=== PATIENT | male | born 1960 | race Caucasian/White ===

== ENCOUNTER → 2016-04-23 | Outpatient (CLI) | payer BC, OTHER ==
[~2016-04-23] VITALS: Ht 182.9 cm; Wt 93.4 kg
[~2016-04-23] MED LIST: HYDROCODON-ACE1 EAC7 PO; HYSINGLA ER40 MG PO; IBUPROFEN 200200 M1 PO; MS CONTIN15 MG PO; NABUMETONE 750750 M1 PO; NORCO 10-325 T1 EAC1 PO; NORCO 10-325 T1 EACH PO; NORCO 7.5-3251 EACH PO; SIMVASTATIN5 MG PO; ZOCOR 10 MG TAB10 MG PO
--- NOTE | ~2016-04-23 | HPC ---
[facility] [address] [place] [address] PAIN MANAGEMENT CONSULTATION Name: SAIDANETTE K Room #: REG [facility] Barbara#: [id number] Admission: 04/23/16 Attend Phys: Tj Rouse DO Discharge: Date of : 64 Report #: [id number] THIS REPORT FOR: //name// CC: Andres Rouse The patient is a very pleasant 56-year-old gentleman typically treated for lumbar radiculopathy, axial back pain requiring complex medication management. Last seen in the pain clinic 02/10/2016. The patient notes rotation from hydrocodone, hydromorphone to MS Contin has been efficacious, but he notes MS Contin 15 mg q. 8 hours helps with pain. Notes that if he forgets to take dose, obviously has a lag time in taking a "catch up" medication. We again reviewed need to take this on a scheduled basis. He is also noticing some "snapping" in his left hip with external rotation and/or significant abduction in the left hip. He has a clicking, popping of the iliotibial band. Notes he is having exacerbation of lumbar radicular symptoms similar to what had been treated last June with epidural injection under fluoroscopy. That injection afforded about 80% relief for several months per the patient. We reviewed the fact that opiate medications are being used to provide analgesia adequate to support activities of daily living, not attempting to achieve a specific pain score on the 0-10 Visual Analog Scale. The current opiate medications are providing sufficient analgesia to allow the patient to participate in activities of daily living. The patient is not exhibiting any aberrant behavior suggestive of drug diversion. The patient is not having any adverse reactions to medications. The patient is not suffering from daytime somnolence or mental acuity changes. The patient is managing opiate-induced constipation with appropriate ffvm-wxq-lfecqee agents and dietary considerations. The patient was counseled on concern for caution with operating a motor vehicle while using opiate medications. A physical exam was performed and the patient's functional status was evaluated. All patients with back pain were advised against the bed rest greater than 4 days and were advised to return to normal activities. Pain score assessment was noted and the treatment plan was reviewed with the patient. All current medications, both prescribed and OTC were reviewed and reconciled on the electronic medical record. Tobacco screening was accomplished and smoking cessation was advised when indicated. BMI was noted and diet/exercise modification was recommended for all patients following outside normal parameters. I reviewed with the patient today their responsibilities to safeguard prescription medications, reviewed their responsibility to utilize medications only as prescribed by the physician. They are to seek and receive pain medications only from 1 physician group ( [facility]). They are to use [address] [place] [address] PAIN MANAGEMENT CONSULTATION Name: DANETTE GIBBS Room #: REG [facility] Jimenez#: [id number] Admission: 04/23/16 Attend Phys: Tj Rouse DO Discharge: Date of : 64 Report #: [id number] pharmacy and keep the clinic informed if they change pharmacies. Their responsibilities include making followup visits in a timely fashion and to avoid abrupt discontinuation of medication usage. Their responsibilities further include bringing their medications (bottles from the pharmacy with residual pills) to the visit for possible confirmation of pill counts and the patient understands it is their responsibility to submit to random drug screens to ensure both that the medications prescribed are present, and that no other controlled substances are present. All prescriptions provided today were generated electronically. PHYSICAL EXAMINATION: Shows 56-year-old gentleman, BMI is 27.9 kilograms per meter squared. Vital signs showed modest hypertension 150/86, pulse 87, respirations 14. Rises from chair easily. Gait is tandem. Passive rotation of the left hip exacerbates a little bit of pain. I cannot reproduce the "pop or click." Modestly positive straight leg raise on the left. Diffuse tenderness across the low back. Again, we reviewed MRI findings somewhat dated from 09/19/2012 noting L5-S1 to have central stenosis with little bit of a left midline shift. ASSESSMENT: Symptomatic lumbar radiculopathy, axial back pain requiring complex medication management, new diagnosis of iliotibial band syndrome. RECOMMENDATION: 1. Renew MS Contin 15 mg every 8 hours. I have taken the liberty of writing for 2 months of current medications. 2. Acute exacerbation of lumbar radicular symptoms. Recommendation of epidural injection under fluoroscopy today. 3. Follow up in 2 months for reevaluation, earlier if needed. PROCEDURE: Lumbar epidural injection under fluoroscopy. PROCEDURE: Lumbar epidural steroid injection. PROCEDURE NOTE: After both written and informed consent to include risk of spinal cord damage, increased pain, weakness and dural puncture, the patient was taken to the fluoroscopy suite, placed in the prone position. After sterile prep and drape, a skin wheal with lidocaine was raised. A 22-gauge epidural Tuohy needle was inserted in the midline at L4-L5 with good loss to resistance. Negative aspiration for cerebrospinal fluid or blood was noted. Then 1 mL of Omnipaque under biplanar fluoroscopy showed good spread within the epidural space. This was followed with 80 mg of triamcinolone plus 1 mL of 1.5% preservative-free Xylocaine, 0.5 mL Xylocaine was then injected to flush the [facility] [address] [place] [address] PAIN MANAGEMENT CONSULTATION Name: DANETTE GIBBS Room #: REG [facility]#: [id number] Admission: 04/23/16 Attend Phys: Tj Rouse DO Discharge: Date of : 64 Report #: [id number] needle; it was removed. The patient was monitored for an appropriate period of time and discharged in good and stable condition. <ELECTRONICALLY SIGNED> By: Tj Rouse DO 04/27/16 1228 1253 0050 Tj Roues DO /nt
[2016-04-23 10:35] VITALS: BP 150/86
== END ==
LOC: PAIN 07:11
DX: M54.16 Radiculopathy, lumbar region (principal); Z87.891 Personal history of nicotine dependence

== ENCOUNTER → 2016-06-19 | Outpatient (CLI) | payer BC ==
[~2016-06-19] VITALS: Ht 182.9 cm; Wt 94.9 kg
--- NOTE | ~2016-06-19 | HPC ---
[facility] [place] [address] PAIN MANAGEMENT CONSULTATION Name: DANETTE GIBBS Room #: REG [facility] Rodrick.#: [id number] Admission: 06/19/16 Attend Phys: Tj Rouse DO Discharge: Date of : 64 Report #: [id number] THIS REPORT FOR: //name// CC: Andres Rouse The patient is a very pleasant 56-year-old gentleman, well known to the pain clinic, being treated for lumbar radiculopathy and axial back pain. At last visit, diagnosed with iliotibial band syndrome. The patient has been stable on baseline narcotic for some time, had found dwindling efficacy with hydrocodone, we have rotated MS Contin 15 mg q. 8 hours, that rotation was accomplished on 02/10/2016. Last visit was 04/23/2015. The patient had a lumbar epidural injection for exacerbation of radicular symptoms at that time. He returns to the pain clinic today noting that lumbar epidural injection accomplished on 04/23/2016 afforded significant incremental relief up to 90% better. Stable on baseline narcotics. Urine drug screen at 02/10/2016 visit was positive for prescribed medications. PHYSICAL EXAMINATION: Shows a 56-year-old gentleman, BMI is 28.4 kilograms per meter squared. Vital signs are stable. Former smoker, does not drink alcohol to excess. Alert and oriented to person, place, and time. Judged to be a reasonable historian. Rises from the chair easily. Gait is tandem. Some diffuse tenderness across the low back. Lumbar flexion is modestly limited. Notes primary pain in the low back, left greater than right leg. Dull, aching sensation, exacerbated with activity. 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 RECOMMENDATION: We have elected to continue baseline medication unchanged. We reviewed the fact that opiate medications are being used to provide analgesia adequate to support activities of daily living, not attempting to achieve a specific pain score on the 0-10 Visual Analog Scale. The current opiate medications are providing sufficient analgesia to allow the patient to participate in activities of daily living. The patient is not exhibiting any aberrant behavior suggestive of drug diversion. The patient is not having any adverse reactions to medications. The patient is not suffering from daytime somnolence or mental acuity changes. The patient is managing opiate-induced constipation with appropriate hetb-ijn-faaqcom agents and dietary considerations. The patient was counseled on concern for caution with operating a motor vehicle while using opiate medications. A physical exam was performed and the patient's functional status was evaluated. All patients with back pain were advised against the bed rest greater than 4 days and were advised to return to normal activities[place] [address] PAIN MANAGEMENT CONSULTATION Name: DANETTE GIBBS Room #: REG [facility] Jimenez#: [id number] Admission: 06/19/16 Attend Phys: Tj Rouse DO Discharge: Date of : 64 Report #: [id number] noted and the treatment plan was reviewed with the patient. All current medications, both prescribed and OTC were reviewed and reconciled on the electronic medical record. Tobacco screening was accomplished and smoking cessation was advised when indicated. BMI was noted and diet/exercise modification was recommended for all patients following outside normal parameters. I reviewed with the patient today their responsibilities to safeguard prescription medications, reviewed their responsibility to utilize medications only as prescribed by the physician. They are to seek and receive pain medications only from 1 physician group ( [facility]). They are to use 1 pharmacy and keep the clinic informed if they change pharmacies. Their responsibilities include making followup visits in a timely fashion and to avoid abrupt discontinuation of medication usage. Their responsibilities further include bringing their medications (bottles from the pharmacy with residual pills) to the visit for possible confirmation of pill counts and the patient understands it is their responsibility to submit to random drug screens to ensure both that the medications prescribed are present, and that no other controlled substances are present. All prescriptions provided today were generated electronically. ASSESSMENT: Symptomatic lumbar radiculopathy, axial back pain, requiring complex medication management, iliotibial band syndrome, last visit seems to be improving somewhat. RECOMMENDATION: Continue MS Contin 15 mg q. 8 hours, quantity sufficient for 2 months provided with 2 prescriptions. No breakthrough medicine. <ELECTRONICALLY SIGNED> By: Tj Rouse DO 06/22/16 1130 [id number] 1031 Tj Rouse DO /nt
[2016-06-19 08:18] VITALS: BP 136/88
== END ==
LOC: PAIN 06:58
DX: M54.16 Radiculopathy, lumbar region (principal); Z87.891 Personal history of nicotine dependence

== ENCOUNTER → 2016-08-14 | Outpatient (CLI) | payer BC, OTHER ==
[~2016-08-14] VITALS: Ht 182.9 cm; Wt 93.2 kg
--- NOTE | ~2016-08-14 | HPC ---
[facility] [address] [address] [place] [address] PAIN MANAGEMENT CONSULTATION Name: SAIDANETTE K Room #: REG [facility] Barbara#: [id number] Admission: 08/14/16 Attend Phys: Tj Rouse DO Discharge: Date of : 64 Report #: [id number] THIS REPORT FOR: //name// CC: Andres Rouse HISTORY OF PRESENT ILLNESS: The patient is a very pleasant 56-year-old gentleman well known to the pain clinic, typically treated for lumbar radiculopathy, axial back pain. Requires complex medication management. Prior concurrent diagnosis of iliotibial band syndrome. The patient had been on hydrocodone for some time, we have rotated MS Contin 15 mg q. 8 hours sometime ago and he has been remarkably stable on this medication. Last urine drug screen 02/10/2016 was positive for prescribed medication at that time. He returns to pain clinic today noting medications are generally providing sufficient analgesia to participate in activities of daily living. He has a fairly physically active job, does lot of walking throughout this time of year. Notes chronic pain in the low back, left leg with significantly improved with epidural injection 04/23/2016. He notes pain relief remains fairly much ongoing, starting to recur. He reported initially 90% relief overall. The patient has done well with occasional epidural injections, again last injection was in March. In 2015, he had injections in June and March. He had had 3 injections in 2014, three in 2013 and two in 2012. PHYSICAL EXAMINATION: Shows a 56-year-old gentleman, BMI is 27.9 kilograms per meter squared. Vital signs show modest hypertension at 151/98, pulse of 90, respirations 16. Alert and oriented to person, place and time, judged to be a reasonable historian. Rises from a chair using armrest. Gait is tandem. Lower extremity strength is preserved. Some diffuse axial back tenderness though leg strength is generally symmetric. He has a modestly positive straight leg raise on the left. We reviewed the fact that opiate medications are being used to provide analgesia adequate to support activities of daily living, not attempting to achieve a specific pain score on the 0-10 Visual Analog Scale. The current opiate medications are providing sufficient analgesia to allow the patient to participate in activities of daily living. The patient is not exhibiting any aberrant behavior suggestive of drug diversion. The patient is not having any adverse reactions to medications. The patient is not suffering from daytime somnolence or mental acuity changes. The patient is managing opiate-induced constipation with appropriate uwuk-sym-kdejhnj agents and dietary considerations. The patient was counseled on concern for caution with operating a motor vehicle while using opiate medications. [address] [address] PAIN MANAGEMENT CONSULTATION Name: DANETTE GIBBS Room #: REG [facility] Barbara#: [id number] Admission: 08/14/16 Attend Phys: Tj Rouse DO Discharge: Date of : 64 Report #: [id number] A physical exam was performed and the patient's functional status was evaluated. All patients with back pain were advised against the bed rest greater than 4 days and were advised to return to normal activities. Pain score assessment was noted and the treatment plan was reviewed with the patient. All current medications, both prescribed and OTC were reviewed and reconciled on the electronic medical record. Tobacco screening was accomplished and smoking cessation was advised when indicated. BMI was noted and diet/exercise modification was recommended for all patients following outside normal parameters. I reviewed with the patient today their responsibilities to safeguard prescription medications, reviewed their responsibility to utilize medications only as prescribed by the physician. They are to seek and receive pain medications only from 1 physician group ( [facility]). They are to use 1 pharmacy and keep the clinic informed if they change pharmacies. Their responsibilities include making followup visits in a timely fashion and to avoid abrupt discontinuation of medication usage. Their responsibilities further include bringing their medications (bottles from the pharmacy with residual pills) to the visit for possible confirmation of pill counts and the patient understands it is their responsibility to submit to random drug screens to ensure both that the medications prescribed are present, and that no other controlled substances are present. All prescriptions provided today were generated electronically. ASSESSMENT: Lumbar radiculopathy, axial back pain requiring complex medication management, stable on MS Contin 15 mg q. 8 hours. RECOMMENDATIONS: Taken the liberty of writing for 2 months of current medication. Follow up at that time, earlier if needed. Consider epidural injection if symptoms, i.e., left leg lumbar radicular symptoms (start to interfere with function). <ELECTRONICALLY SIGNED> By: Tj Rouse DO 08/17/16 1118 1159 1930 Tj Rouse DO /nt
[2016-08-14 10:38] VITALS: BP 151/98
== END ==
LOC: PAIN 05:45
DX: M54.16 Radiculopathy, lumbar region (principal); Z87.891 Personal history of nicotine dependence

== ENCOUNTER → 2016-10-09 | Outpatient (CLI) | payer BC, OTHER ==
[~2016-10-09] VITALS: Ht 182.9 cm; Wt 93.4 kg
[2016-10-09 11:36] VITALS: BP 140/96
== END | disposition home or self-care (01) ==
LOC: PAIN 06:55
DX: M54.16 Radiculopathy, lumbar region (principal); M54.9 Dorsalgia, unspecified; G89.29 Other chronic pain; F11.20 Opioid dependence, uncomplicated; Z98.890 Other specified postprocedural states; Z87.891 Personal history of nicotine dependence

== ENCOUNTER → 2016-12-07 | Outpatient (CLI) | payer BC, OTHER ==
[~2016-12-07] VITALS: Ht 182.9 cm; Wt 92.0 kg
--- NOTE | ~2016-12-07 | HPC ---
[facility] [place] [address] [place] [address] PAIN MANAGEMENT CONSULTATION Name: DANETTE GIBBS Room #: REG [facility].#: [id number] Admission: 12/07/16 Attend Phys: Tj Rouse DO Discharge: Date of : 64 Report #: [id number] THIS REPORT FOR: //name// CC: Andres Rouse DATE OF SERVICE: 12/07/2016 The patient is a very pleasant 56-year-old gentleman treated for chronic axial back pain, lumbar radiculopathy requiring high-risk complex medication management. Last seen in the pain clinic on 10/09/2016. Last urine drug screens in 2013 and 2015 were positive for prescribed medications. He returns to pain clinic today noting medications are helpful. I had done an epidural injection at last visit with significant incremental improvement of pain. He notes today his pain is about 1-2 on VAS. He is quite physically active. 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 He notes pain continues in the low back, left hip, and leg. Again, specifically significant improvement, about 70%, following last injection with overall ongoing improvement. PHYSICAL EXAMINATION: Shows 56-year-old gentleman, BMI is 27.5 kilograms per meter squared. Blood pressure is modestly elevated at 131/94, pulse 83, respirations are 14. Alert and oriented to person, place, and time, judged to be a reasonable historian. Rises from chair easily. Gait is tandem. Diffuse tenderness across the low back. No focal weakness is noted. We reviewed the fact that opiate medications are being used to provide analgesia adequate to support activities of daily living, not attempting to achieve a specific pain score on the 0-10 Visual Analog Scale. The current opiate medications are providing sufficient analgesia to allow the patient to participate in activities of daily living. The patient is not exhibiting any aberrant behavior suggestive of drug diversion. The patient is not having any adverse reactions to medications. The patient is not suffering from daytime somnolence or mental acuity changes. The patient is managing opiate-induced constipation with appropriate ekwd-xgh-ggucdcz agents and dietary considerations. The patient was counseled on concern for caution with operating a motor vehicle while using opiate medications. A physical exam was performed and the patient's functional status was evaluated. All patients with back pain were advised against the bed rest greater than 4 days and were advised to return to normal activities. Pain score assessment was noted and the treatment plan was reviewed with the patient. All current medications, both prescribed and OTC were reviewed and reconciled on the electronic medical record. Tobacco screening was accomplished and smoking [address] [address] PAIN MANAGEMENT CONSULTATION Name: SAIDANETTEEARL LIND Room #: REG [facility] Jimenez#: [id number] Admission: 12/07/16 Attend Phys: Tj Rouse DO Discharge: Date of : 64 Report #: [id number] cessation was advised when indicated. BMI was noted and diet/exercise modification was recommended for all patients following outside normal parameters. I reviewed with the patient today their responsibilities to safeguard prescription medications, reviewed their responsibility to utilize medications only as prescribed by the physician. They are to seek and receive pain medications only from 1 physician group ( [facility]). They are to use 1 pharmacy and keep the clinic informed if they change pharmacies. Their responsibilities include making followup visits in a timely fashion and to avoid abrupt discontinuation of medication usage. Their responsibilities further include bringing their medications (bottles from the pharmacy with residual pills) to the visit for possible confirmation of pill counts and the patient understands it is their responsibility to submit to random drug screens to ensure both that the medications prescribed are present, and that no other controlled substances are present. All prescriptions provided today were generated electronically. ASSESSMENT: Symptomatic lumbar radiculopathy, axial back pain requiring high-risk complex medication management. Stable on baseline medications. RECOMMENDATION: Renew MS Contin 15 mg q. 8 hours. I have taken the liberty of writing for 2 months current medications. Follow up at that time, consider buccal swab at that time, no aberrant behavior suggestive for drug diversion, simply complying with opiate consent to treat contract. It will be about 1 year since last drug screen at that time. Epidural injection only as indicated. <ELECTRONICALLY SIGNED> By: Tj Rouse DO 12/09/1611 58 Tj Rouse DO /nt
[2016-12-07 08:20] VITALS: BP 131/94
== END ==
LOC: PAIN 07:12
DX: Z76.0 Encounter for issue of repeat prescription (principal); M54.16 Radiculopathy, lumbar region; Z79.891 Long term (current) use of opiate analgesic; Z87.891 Personal history of nicotine dependence; Z72.89 Other problems related to lifestyle

== ENCOUNTER → 2017-04-19 | Outpatient (CLI) | payer BC, OTHER ==
[~2017-04-19] VITALS: Ht 182.9 cm; Wt 95.4 kg
[~2017-04-19] MED LIST changes: +CIALIS20 MG PO; +KETOCONAZOLE15 GM TOP; +LIPITOR10 MG PO
--- NOTE | ~2017-04-19 | HPC ---
[facility] [address] [place] [address] PAIN MANAGEMENT CONSULTATION Name: DANETTE GIBBS Room #: REG [facility] MRob.#: [id number] Admission: 04/19/17 Attend Phys: Tj Rouse DO Discharge: Date of : 64 Report #: [id number] THIS REPORT FOR: //name// CC: Andres Rouse The patient is a very pleasant 57-year-old gentleman, long treated for lumbar radiculopathy, axial back pain requiring high risk complex medication management. Last seen in pain clinic 02/04/2017. We continued the patient on MS Contin 15 mg q.8 hours. He prior had a lumbar epidural injection back in September at L4-L5 with good incremental improvement of baseline pain. He returns to pain clinic today. He had weaned down and off opiate analgesics. He has been off morphine now for about 2 weeks. He feels unfortunately that his functional status has declined with this. He does note acute exacerbation of left L4 radicular pain with pain in the low back, buttock, lateral leg to the foot. PHYSICAL EXAMINATION: Shows pleasant 57-year-old gentleman, BMI is approximately 26 kilograms per meter squared. Vital signs stable as noted in the EMR. Rises using armrest, modestly antalgic gait, diffuse tenderness across the low back, positive straight leg raise on the left, slightly decreased left patellar reflex. We reviewed the fact that opiate medications are being used to provide analgesia adequate to support activities of daily living, not attempting to achieve a specific pain score on the 0-10 Visual Analog Scale. The current opiate medications are providing sufficient analgesia to allow the patient to participate in activities of daily living. The patient is not exhibiting any aberrant behavior suggestive of drug diversion. The patient is not having any adverse reactions to medications. The patient is not suffering from daytime somnolence or mental acuity changes. The patient is managing opiate-induced constipation with appropriate uodx-vdj-fmcqrmn agents and dietary considerations. The patient was counseled on concern for caution with operating a motor vehicle while using opiate medications. A physical exam was performed and the patient's functional status was evaluated. All patients with back pain were advised against the bed rest greater than 4 days and were advised to return to normal activities. Pain score assessment was noted and the treatment plan was reviewed with the patient. All current medications, both prescribed and OTC were reviewed and reconciled on the electronic medical record. Tobacco screening was accomplished and smoking cessation was advised when indicated. BMI was noted and diet/exercise modification was recommended for all patients following outside normal parameters. I reviewed with the patient today their responsibilities to safeguard prescription medications, reviewed their responsibility to utilize medications only as prescribed by the physician. They are to seek and receive pain [address] [address] PAIN MANAGEMENT CONSULTATION Name: SAIDANETTEEARL LIND Room #: REG [facility] Jimenez#: [id number] Admission: 04/19/17 Attend Phys: Tj Rouse DO Discharge: Date of : 64 Report #: [id number] medications only from 1 physician group ( [facility]). They are to use 1 pharmacy and keep the clinic informed if they change pharmacies. Their responsibilities include making followup visits in a timely fashion and to avoid abrupt discontinuation of medication usage. Their responsibilities further include bringing their medications (bottles from the pharmacy with residual pills) to the visit for possible confirmation of pill counts and the patient understands it is their responsibility to submit to random drug screens to ensure both that the medications prescribed are present, and that no other controlled substances are present. All prescriptions provided today were generated electronically. ASSESSMENT: Lumbar radiculopathy, acute exacerbation, chronic axial back pain requiring high risk complex medication management. Last buccal drug swab was 02/14/2017. RECOMMENDATIONS: 1. After discussion with the patient, they have elected to renew a prescription for MS Contin 15 mg q.8 hours, dispense 90 tablets. We will start patient back with simply 1 tablet at bedtime, gradually titrating up to t.i.d. as needed for pain. He does not have any end of dose failure and did not have any obvious opiate withdrawal symptoms as he weaned off before. I would like to use a lowest effective dose, but keep him functional. He has a very physically intensive job. 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 He requires a fair bit of walking and traveling. 2. Acute exacerbation of lumbar radiculopathy. Recommendation for epidural injection under fluoroscopy. PROCEDURE: Lumbar epidural steroid injection. PROCEDURE NOTE: After both written and informed consent to include risk of spinal cord damage, increased pain, weakness and dural puncture, the patient was taken to the fluoroscopy suite, placed in the prone position. After sterile prep and drape, a skin wheal with lidocaine was raised. A 22-gauge epidural Tuohy needle was inserted in the midline at L4-5 with good loss to resistance. Negative aspiration for cerebrospinal fluid or blood was noted. Then 1 mL of Omnipaque under biplanar fluoroscopy showed good spread within the epidural space. This was followed with 80 mg of triamcinolone plus 1 mL of 1.5% preservative-free Xylocaine, 0.5 mL Xylocaine was then injected to flush the needle; it was removed. The patient was monitored for an appropriate period of time and discharged in good and stable condition. <ELECTRONICALLY SIGNED> By: Tj Rouse DO 04/21/17 0807 [id number] Tj Rouse DO /nt
[2017-04-19 13:49] VITALS: BP 132/82
== END | disposition home or self-care (01) ==
LOC: PAIN 07:11
DX: M54.16 Radiculopathy, lumbar region (principal); G89.29 Other chronic pain; Z79.891 Long term (current) use of opiate analgesic; Z87.891 Personal history of nicotine dependence

== ENCOUNTER → 2017-06-21 | Outpatient (CLI) | payer BC, OTHER ==
[~2017-06-21] VITALS: Ht 182.9 cm; Wt 94.8 kg
--- NOTE | ~2017-06-21 | HPC ---
[facility] [address] [place] [address] PAIN MANAGEMENT CONSULTATION Name: DANETTE GIBBS Room #: REG [facility] Rodrick.#: [id number] Admission: 06/21/17 Attend Phys: Tj Rouse DO Discharge: Date of : 64 Report #: [id number] THIS REPORT FOR: //name// CC: Andres Rouse DATE OF SERVICE: 06/21/2017 The patient is a very pleasant 57-year-old gentleman being treated for symptomatic lumbar radiculopathy, axial back pain requiring complex medication management. Last seen in the pain clinic on 04/19/2017. Continued on baseline medication. He had weaned off morphine for a short period of time, had significant impact in his functional status, gradually weaned back to MS Contin 15 mg q.8 hours. He is doing well on this current medication. Prior random drug screen on 02/04/2017 was negative as expected. He had weaned off his MS Contin. Unfortunately, I learned from the patient today that the insurance company charged him nearly [phone] dollars for this exam. We refer this for multiple of our patients. While we were endeavoring to appropriately comply with CDC recommendations for chronic opiate use, we will endeavor to have the hospital look for another vendor to provide our random drug screens, this does pose a serious cost to most of our patients. Nonetheless, he returns to the pain clinic. He is doing well on current medication. 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 Fairly active job requiring a great deal of walking. He notes with medications, his current pain is a 2 on a VAS, the pain is primarily low back, left greater than right leg, chronic aching sensation with some numbness. He has had good relief with epidural injections in the past. MRI back from 5 years ago in 2012, had noted facet degenerative changes in the lumbar spine, worse at L5-S1, eccentric disk bulging left of midline. He does have bilateral neural foraminal stenosis. We suspect this has simply gotten worse over the past 5 years. PHYSICAL EXAMINATION: Again notes a pleasant 57-year-old gentleman, BMI is 28.3 kilograms per meter squared. Blood pressure 133/86, pulse 109, respirations 16, oxygen saturation 97%. He rises from chair using armrest. Lower extremity strength is generally preserved, slight positive straight leg raise on the left, diffuse tenderness across the low back. No discrete trigger points noted. Gait is tandem. Reviewed opiate consent to treat contract signed on 02/04/2017. Opiate risk assessment is low risk. Functional impact score is low . ASSESSMENT: Symptomatic lumbar radiculopathy, axial back pain, stable on [address] [address] PAIN MANAGEMENT CONSULTATION Name: DANETTE GIBBS Room #: REG [facility] Jimenez#: [id number] Admission: 06/21/17 Attend Phys: Tj Rouse DO Discharge: Date of : 64 Report #: [id number] complex medication management. RECOMMENDATION: Continue MS Contin 15 mg q.8 hours, I have taken the liberty of writing for 2 months of current medication. Follow up in 2 months for reevaluation. 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 We spent a little time talking about [facility]. The patient has had epidural injections in March of this year. In 2016, he had injections in March and September. Really does not warrant interventional therapy at this time. Discharged in good and stable condition. <ELECTRONICALLY SIGNED> By: Tj Rouse DO 06/25/17 0944 1546 1758 Tj Rouse DO /nt
[2017-06-21 14:54] VITALS: BP 133/86
== END ==
LOC: PAIN 07:14
DX: M54.16 Radiculopathy, lumbar region (principal); Z79.899 Other long term (current) drug therapy

== ENCOUNTER → 2017-11-09 | Outpatient (CLI) | payer BC, OTHER ==
[~2017-11-09] VITALS: Ht 182.9 cm; Wt 95.3 kg
[~2017-11-09] MED LIST changes: -KETOCONAZOLE15 GM TOP; -LIPITOR10 MG PO
--- NOTE | ~2017-11-09 | HPC ---
[facility] [address] [place] [address] PAIN MANAGEMENT CONSULTATION Name: DANETTE GIBBS Room #: REG CL M.R.#: [id number] Admission: 11/09/17 Attend Phys: Jaime Rouse DO Discharge: Date of : 64 Report #: [id number] THIS REPORT FOR: //name// CC: Jaime Nicole DATE OF SERVICE: 11/09/2017 REFERRING PHYSICIAN: Benjie Nguyen D.O. CHIEF COMPLAINT: Low back pain and left lower extremity pain with paresthesias. HISTORY OF PRESENT ILLNESS: As you know, the patient is a very pleasant 57-year-old male who is followed by my partner, Dr. Tj Rouse for lumbar radicular symptoms radiating down the left leg. He indicates pain medication in the form of MS Contin 15 mg 3 times a day with the use of a periodic epidural injection provides good and prolonged benefit. He states he is able to work go about activities of daily living and even golf as entertainment. He returns requesting refill of medications at this time. He does wish to schedule an appointment for possible epidural injection next week. Once he is scheduled, is able to accommodate injection and go home and relax. He indicates pain is aching and numbness in sensation, exacerbated with activities, sitting in the car and sitting for long periods of time, improves with medications, walking, relaxation, repositioning and epidural injections. ALLERGIES: No known drug allergies. CURRENT MEDICATIONS: MS Contin 15 mg 3 times a day, Cialis 20 mg p.r.n. and ibuprofen 200 mg 3 times a day. SOCIAL HISTORY: The patient smokes. He denies IV or illicit drug use. Denies any chronic alcohol use. He is working, not receiving workmen's compensation. He is unaccompanied today. IMAGING DATA: No new imaging available. K-TRACS and MoTracks were reviewed. There is no concerning entries in these programs. He appears to be receiving his medications appropriately. PHYSICAL EXAMINATION: VITAL SIGNS: Blood pressure 139/92, pulse 89 and respiratory rate 16 and unlabored. The patient 99% on room air, height 6 feet tall, weight 210 pounds and BMI calculated 28.5. GENERAL: Well-developed, well-nourished and well-hydrated 57-year-old male appearing stated age, placing current pain score at 2/10. HEENT: Normocephalic and atraumatic. Pupils equal, round and reactive to [address] [address] PAIN MANAGEMENT CONSULTATION Name: DANETTE GIBBS Room #: REG CLI [facility]#: [id number] Admission: 11/09/17 Attend Phys: Jaime Rouse DO Discharge: Date of : 64 Report #: [id number] light. Extraocular muscles are intact. Sclerae nonicteric without injection. NEUROLOGICAL: Cranial nerves 2 through 12 grossly intact. Speech fluent. EXTREMITIES: Show no clubbing, no cyanosis and no edema. MUSCULOSKELETAL: Lower extremity strength appears equal and symmetrical 5/5, intact to light touch from L1 through S2 dermatomes. Deep tendon reflexes are symmetrical at patella and Achilles. Ankle clonus negative. Babinski is negative. Seated straight leg raising negative. Supine straight leg raising positive on the left. ASSESSMENT: 1. Symptomatic lumbar radiculopathy. 2. Displacement of lumbar intervertebral disk with radiculopathy. 3. Lumbosacral spondylosis with radiculopathy. 4. Neural foraminal stenosis of the lumbar spine. 5. Facet arthropathy of the lumbar spine. 6. Chronic intractable pain. PLAN: 1. The patient has returned today in followup visit requesting refill on medications. He feels medications are working beneficially for pain control. As part of our opioid monitoring secondary to her opioid contract, I have requested the patient undergo a urine drug screen today. He states we will find no medications that are not reported over a long period. He states he is taking his morphine 3 times a day and this should be found in his drug screen. He will submit to the drug screen today. Results should be available to us next week. 2. We reviewed the fact that opiate medications are being used to provide analgesia adequate to support activities of daily living, not attempting to achieve a specific pain score on the 0-10 Visual Analog Scale. The current opiate medications are providing sufficient analgesia to allow the patient to participate in activities of daily living. The patient is not exhibiting any aberrant behavior suggestive of drug diversion. The patient is not having any adverse reactions to medications. The patient is not suffering from daytime somnolence or mental acuity changes. The patient is managing opiate-induced constipation with appropriate gtrl-bkf-aoohmck agents and dietary considerations. The patient was counseled on concern for caution with operating a motor vehicle while using opiate medications. A physical exam was performed and the patient's functional status was evaluated. All patients with back pain were advised against the bed rest greater than 4 days and were advised to return to normal activities. Pain score assessment was noted and the treatment plan was reviewed with the patient. All current medications, both prescribed and OTC were reviewed and reconciled on the electronic medical record. Tobacco screening was accomplished and smoking cessation was advised when indicated. BMI was noted and diet/exercise modification was recommended for all patients following outside normal parameters. [address] [address] PAIN MANAGEMENT CONSULTATION Name: DANETTE GIBBS [facility] [id number] Admission: 11/09/17 Attend Phys: Jaime Rouse DO Discharge: Date of : 64 Report #: [id number] I reviewed with the patient today their responsibilities to safeguard prescription medications, reviewed their responsibility to utilize medications only as prescribed by the physician. They are to seek and receive pain medications only from 1 physician group ( [facility]). They are to use 1 pharmacy and keep the clinic informed if they change pharmacies. Their responsibilities include making followup visits in a timely fashion and to avoid abrupt discontinuation of medication usage. Their responsibilities further include bringing their medications (bottles from the pharmacy with residual pills) to the visit for possible confirmation of pill counts and the patient understands it is their responsibility to submit to random drug screens to ensure both that the medications prescribed are present, and that no other controlled substances are present. All prescriptions provided today were generated electronically. 3. The patient was provided a prescription of MS Contin 15 mg dose 1 tab p.o. t.i.d. I have given the patient #90 tablets, releases of today, 4 weeks from today, 8 weeks from today, 3 months' worth of medication. Total morphine equivalents in this patient's case, 45 morphine equivalents well below the 90 morphine equivalents indicated by CDC as the maximum dose available for chronic pain. 4. The patient will return to our clinic next week for epidural injection under fluoroscopic guidance. 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 We have scheduled the patient for an appointment next week to undergo lumbar epidural injection under fluoroscopic guidance. 5. We will see the patient back in followup visit for the epidural injection next week. We will see him back in 3 months for medication management. <ELECTRONICALLY SIGNED> By: Jaime Rouse DO 11/10/17 0838 1529 0150 Jaime Rouse DO /nt
[2017-11-09 14:21] VITALS: BP 139/92
== END ==
LOC: PAIN 07:09
DX: M47.27 Other spondylosis with radiculopathy, lumbosacral region (principal); M48.062 Spinal stenosis, lumbar region with neurogenic claudication; M51.16 Intervertebral disc disorders with radiculopathy, lumbar region; G89.4 Chronic pain syndrome

== ENCOUNTER → 2017-11-16 | Outpatient (CLI) | payer BC, OTHER ==
[~2017-11-16] VITALS: Ht 182.9 cm; Wt 94.3 kg
--- NOTE | ~2017-11-16 | HPC ---
[facility] [address] [place] [address] PAIN MANAGEMENT CONSULTATION Name: DANETTE GIBBS Room #: REG CL M.R.#: [id number] Admission: 11/16/17 Attend Phys: Jaime Rouse DO Discharge: Date of : 64 Report #: [id number] THIS REPORT FOR: //name// CC: DANIEL Nicole DATE OF SERVICE: 11/16/2017 CHIEF COMPLAINT: Low back pain, left lower extremity pain with paresthesias. HISTORY OF PRESENT ILLNESS: As you know, the patient is a 57-year-old male followed by my partner, Dr. Tj Rouse for lumbar radicular symptoms radiating down his left leg. He returns today in followup visit requesting to undergo a lumbar epidural injection under fluoroscopic guidance. The patient reports good efficacy with combination of epidural injections and medication management. We continued the patient on his medication management at our last visit and he returns today with pain level of 2/10 requesting this epidural injection in hopes of improving pain further. As indicated above, the patient does very well with epidural injections. He denies injury or trauma or any changes in medical history since our visit last week. ALLERGIES: No known drug allergies. CURRENT MEDICATIONS: MS Contin 15 mg 3 times a day, Cialis 20 mg p.r.n., ibuprofen 200 mg 3 times a day. SOCIAL HISTORY: The patient continues to smoke. He denies IV or illicit drug use. Denies any chronic alcohol use. He is working, not receiving workmen's compensation, unaccompanied today. IMAGING: No new imaging available. PHYSICAL EXAMINATION: VITAL SIGNS: Blood pressure 126/80, pulse is 104, respiratory rate 16 and unlabored. The patient is 98% on room air. Height 6 feet tall, weight 208 pounds, BMI calculated at 28.2. GENERAL: Well-developed, well-nourished, well-hydrated 57-year-old male. He appears his stated age, placing current pain score no greater than 2/10. HEENT: Normocephalic, atraumatic. Pupils equal, round, reactive to light. EXTREMITIES: Show no clubbing, no cyanosis, no edema. MUSCULOSKELETAL: Lower extremity strength is symmetrical 5/5, intact to light touch from L1 through S2 dermatomes. Deep tendon reflexes symmetrical at patella and Achilles. Ankle clonus negative. Babinski is negative. Seated straight leg raising negative. Supine straight leg raising positive on the left. Gait mildly antalgic favoring left lower extremity over right. [facility] [address] [place] [address] PAIN MANAGEMENT CONSULTATION Name: DANETTE GIBBS Room #: REG [facility]#: [id number] Admission: 11/16/17 Attend Phys: Jaime Rouse DO Discharge: Date of : 64 Report #: [id number] ASSESSMENT: 1. Symptomatic lumbar radiculopathy. 2. Displacement of lumbar intervertebral disk with radiculopathy. 3. Lumbosacral spondylosis with radiculopathy. 4. Neural foraminal stenosis of lumbar spine. 5. Facet arthropathy of the lumbar spine. 6. Chronic intractable pain. PLAN: 1. The patient returns today in followup visit requesting to undergo epidural injection under fluoroscopic guidance. The patient has been advised of the risks and the benefits of this procedure. These risks include, but are not necessarily limited to bleeding, bruising, infection, worsening pain, no relief of pain, also risk of temporary or permanent muscle weakness, temporary or permanent nerve damage, possible paralysis and . The patient states understood and wished to proceed. 2. No medication changes made at today's visit. The patient will continue current medical therapy as previously prescribed. 3. We have reviewed the patient's recent urine drug screen obtained 11/09/2017. It shows appropriate morphine positive, negative for all other substances except for nicotine. This appears to be an appropriate drug screen. We have discussed this with the patient today. 4. We will see the patient back in followup visit in 2 months for medication management, otherwise earlier for possible repeat epidural injection. PROCEDURE NOTE DESCRIPTION OF PROCEDURE: L5-S1 left paramedian epidural steroid injection under fluoroscopic guidance. After obtaining written consent, the patient was taken back to fluoroscopy suite, placed in prone position with pillow under abdomen to decrease lumbar lordosis. Skin overlying the lumbosacral area was prepped and draped in aseptic fashion. The L5-S1 vertebral interspace was identified by AP fluoroscopy. Skin and subcutaneous tissue overlying target site of injection was anesthetized with 3 mL of 1% lidocaine. A 20-gauge 3-1/2 inch Tuohy needle advanced under fluoroscopic guidance towards the epidural space using left paramedian approach. Epidural space identified using loss of resistance to air technique. After negative aspiration for heme or cerebrospinal fluid, 1 mL of Omnipaque injected. A lumbar epidurogram confirmed using both AP and lateral fluoroscopy. After negative aspiration for heme or cerebrospinal fluid, 5 mL of solution containing 2 mL 40 mg per mL, 80 mg total triamcinolone, 3 mL lidocaine 1% injected slowly. Needle retracted jail, flushed with 1 mL of 1% lidocaine and removed. Sterile bandage placed [address] [address] PAIN MANAGEMENT CONSULTATION Name: DANETTE GIBBS Room #: REG CLI Rodrick.#: [id number] Admission: 11/16/17 Attend Phys: Jaime Rouse DO Discharge: Date of : 64 Report #: [id number] over injection site. No new motor deficits present in lower extremity following procedure. The patient tolerated the procedure well, carefully escorted to recovery room in stable condition. No apparent complication. After meeting discharge criteria, the patient discharged home. <ELECTRONICALLY SIGNED> By: Jaime Rouse DO 11/18/17 0817 1633 0310 Jaime Rouse DO /nt
[2017-11-16 13:33] VITALS: BP 126/80
== END | disposition home or self-care (01) ==
LOC: PAIN 07:01
DX: M51.16 Intervertebral disc disorders with radiculopathy, lumbar region (principal); M47.27 Other spondylosis with radiculopathy, lumbosacral region; M48.061 Spinal stenosis, lumbar region without neurogenic claudication; M46.96 Unspecified inflammatory spondylopathy, lumbar region; G89.29 Other chronic pain; F17.210 Nicotine dependence, cigarettes, uncomplicated; Z79.899 Other long term (current) drug therapy; Z98.890 Other specified postprocedural states

== ENCOUNTER → 2018-02-02 | Outpatient (CLI) | payer BC, OTHER ==
[~2018-02-02] VITALS: Ht 180.3 cm; Wt 94.3 kg
[~2018-02-02] MED LIST changes: +KETOCONAZOLE15 GM TOP; +LIPITOR10 MG PO
--- NOTE | ~2018-02-02 | HPC ---
[facility] [place] [address] PAIN MANAGEMENT CONSULTATION Name: DANETTE GIBBS Room #: REG [facility] MRob.#: [id number] Admission: 02/02/18 Attend Phys: Kallie Yen Discharge: Date of : 64 Report #: [id number] THIS REPORT FOR: //name// CC: Kallie Yen Andres Nicole DATE OF SERVICE: 02/02/2018 CHIEF COMPLAINT: Low back pain, left lower extremity pain and paresthesias. HISTORY OF PRESENT ILLNESS: This is a 58-year-old male who is followed by Dr. Tj Rouse, recently by Dr. Jaime Rouse for his lumbar radicular symptoms from his low back, down his left hip and to his left leg. The patient complains of achy and numbness, especially when he is sitting or lying down. He said it is worse at night. He tells me he is very active during the day and walking, it helps it along with his medications. He rates his pain at 2/10 today. He tells me he does not have problems with constipation or daytime somnolence. He is here requesting a refill for his medicines today. He did have an injection in the past, but says they are very helpful in relieving his pain when it gets too bad. His last injection was in October and he tells me at that time he had 80% relief. ALLERGIES: No known drug allergies. CURRENT LIST OF MEDICATIONS: Atorvastatin 10 mg at bedtime, MS Contin 15 mg 3 times a day, Cialis 20 mg as needed, ibuprofen 200 mg as needed and fiber supplement daily. PQRS: 1. History of osteoarthritis in his lower back and lower extremity. Denies rheumatoid arthritis. 2. Height is 5 feet 11 inches, weight 208. BMI is 29. 3. Vital signs: Blood pressure 146/92, pulse is 95, respirations 18, oxygen sat is 98%. 4. Pain score is 2. 5. Fall risk: Denies dizziness. Does not need help walking or standing and has not fallen in the last 3 months. 6. Denies blood thinners. Denies hypertension. 7. Opioid therapy greater than 6 weeks, therefore opioid signed contract is on the chart. 8. His risk assessment tool is low and his functional assessment is . 9. The patient denies recreational drug use. He is a former smoker and does drink occasional alcohol. We have checked the [place] drug monitoring system. The patient is filling appropriate with his medications from Dr. Rouse and no other doctors [address] [address] PAIN MANAGEMENT CONSULTATION Name: DANETTE GIBBS [facility]: [facility] [id number] Admission: 02/02/18 Attend Phys: Kallie Yen Discharge: Date of : 64 Report #: [id number] and the patient tells me he safeguards his medications. PHYSICAL EXAMINATION: GENERAL: This is a well-developed, well-nourished, well-hydrated 58-year-old gentleman who appears his stated age, placing his pain at 2/10. HEENT: Normocephalic, atraumatic. Pupils equal, round and reactive to light. EXTREMITIES: No clubbing, no cyanosis, no edema. MUSCULOSKELETAL: Lower extremity strength to be judged to be 5/5. Supine straight raising is positive on the left. Able to raise from sitting to standing without difficulty. IMPRESSION: 1. Symptomatic lumbar radiculopathy. 2. Displacement of lumbar intervertebral disk with radiculopathy. 3. Lumbosacral spondylosis with radiculopathy. 4. Facet arthroscopy of the lumbar spine. 5. Chronic intractable pain. We reviewed the fact that opiate medications are being used to provide analgesia adequate to support activities of daily living, not attempting to achieve a specific pain score on the 0-10 Visual Analog Scale. The current opiate medications are providing sufficient analgesia to allow the patient to participate in activities of daily living. The patient is not exhibiting any aberrant behavior suggestive of drug diversion. The patient is not having any adverse reactions to medications. The patient is not suffering from daytime somnolence or mental acuity changes. The patient is managing opiate-induced constipation with appropriate dwov-bkp-nbsclto agents and dietary considerations. The patient was counseled on concern for caution with operating a motor vehicle while using opiate medications. A physical exam was performed and the patient's functional status was evaluated. All patients with back pain were advised against the bed rest greater than 4 days and were advised to return to normal activities. Pain score assessment was noted and the treatment plan was reviewed with the patient. All current medications, both prescribed and OTC were reviewed and reconciled on the electronic medical record. Tobacco screening was accomplished and smoking cessation was advised when indicated. BMI was noted and diet/exercise modification was recommended for all patients following outside normal parameters. I reviewed with the patient today their responsibilities to safeguard prescription medications, reviewed their responsibility to utilize medications only as prescribed by the physician. They are to seek and receive pain medications only from 1 physician group ([facility]). They are to use 1 pharmacy and keep the clinic informed if they change pharmacies. Their responsibilities include making followup visits in a timely fashion and to avoid [address] [address] PAIN MANAGEMENT CONSULTATION Name: DANETTE GIBBS Room #: REG [facility] Jimenez#: [id number] Admission: 02/02/18 Attend Phys: Kallie Yen Discharge: Date of : 64 Report #: [id number] abrupt discontinuation of medication usage. Their responsibilities further include bringing their medications (bottles from the pharmacy with residual pills) to the visit for possible confirmation of pill counts and the patient understands it is their responsibility to submit to random drug screens to ensure both that the medications prescribed are present, and that no other controlled substances are present. All prescriptions provided today were generated electronically. PLAN: 1. The patient returned today for followup visit for his medication management. He tells me that he is functioning quite well on his MS Contin 15 mg 3 times a day. We will refill that medicine 15 mg #90 for today and again in 8 weeks. 2. The patient has urine drug screen that is appropriate on the chart. 3. The patient tells me that he will be going to [place] on a cruise in a few months. I have instructed the patient to safeguard his medicines when he is on vacation and keep them with him at all times. 4. The patient will be seen in 3 months in followup visit by myself. His total MME is 45 mme, which is below the 90 and 50 morphine equivalents that the CDC recommends, therefore, we are able to give him 3 months of medicines: The patient is seen in followup collaboration with Dr. Jaime Rouse. <ELECTRONICALLY SIGNED> By: Kallie Yen 02/03/18 0701 [id number] Kallie moreno
[2018-02-02 09:05] VITALS: BP 146/92
== END ==
LOC: PAIN 07:01
DX: M47.27 Other spondylosis with radiculopathy, lumbosacral region (principal); G89.4 Chronic pain syndrome; M12.88 Other specific arthropathies, not elsewhere classified, other specified site

== ENCOUNTER → 2018-04-27 | Outpatient (CLI) | payer BC, OTHER ==
[~2018-04-27] VITALS: Ht 180.3 cm; Wt 97.3 kg
[2018-04-27 09:26] VITALS: BP 153/102
--- NOTE | 2018-04-27 09:30 | NUR ---
Pain Clinic Assessment: 1. History of Osteoarthritis: Not Applicable History of Rheumatoid Arthritis: Not Applicable 2. Height: 5 ft. 11 in. 180.3 cm. Weight: 214.6 lb. oz. 97.342 kg. Patient's BMI: 29.9 3. Vital Signs: BP: 153/102 Pulse: 89 Resp: 16 Temp: 02 Sat: 98 ECG Mon: 4. Pain Intensity: 1-2 5. Fall Risk: Dizziness: N Needs help standing or walking: N Fallen in the last 3 months: N Fall risk comments: 6. Patient on Blood Thinner: None 7. History of Hypertension: N 8. Opioid Therapy greater than 6 weeks: Y Opiate Contract Signed: 02/04/17 9. Risk Assessment Tool Provided: 3-LOW RISK 10. Functional Assessment Tool: 11. Recreational Drug Use: Never Drug Type: Tobacco Use: Former Smoker Tobacco Type: Amount or Packs/day: How Many Years: Alcohol Use: Yes Frequency: Weekly Quant: 4
--- NOTE | 2018-04-28 10:00 | HPC ---
[facility] [address] [place] [address] PAIN MANAGEMENT CONSULTATION Name: DANETTE GIBBS Room #: REG CL Rodrick.#: [id number] Admission: 04/27/18 Attend Phys: Kallie Yen Discharge: Date of : 64 Report #: [id number] THIS REPORT FOR: //name// CC: Kallie Yen Andres Nicole DATE OF SERVICE: 04/27/2018 CHIEF COMPLAINT: Low back pain, left lower extremity pain, and paraesthesias. HISTORY OF PRESENT ILLNESS: This is a very pleasant 58-year-old gentleman who returns to the Pain Clinic today for refill of his medications for his lower back pain, left hip pain and left leg pain. He tells me that his pain score is 1-2 today, very manageable with his current pain regimen. He tells me that he has pain worse at night, worse when he is sitting too long and lying down. His pain is much better when he is walking with his medication or if he repositions and moves around. It is a generalized achy numbness pain. He denies any problems with constipation or daytime sleepiness. He tells me that he had recently gone on a trip and did quite well functioning with his pain on that vacation. It has been greater than 6 months since his last injection. He tells me he continues to do well. CURRENT ALLERGIES: No known drug allergies. LIST OF MEDICATIONS: Morphine 15 mg 3 times a day, atorvastatin 10 mg at bedtime, Cialis as needed and ibuprofen as needed. PQRS: 1. He has history of osteoarthritis in his lower back and lower extremities. Denies rheumatoid arthritis. 2. Height is 5 feet 11 inches, weight is 214, BMI is 29.9. 3. Vital signs: 153/102, pulse is 89, respirations 16, oxygen sat is 98. 4. Pain score is 1-2. 5. Fall risk. Denies dizziness. Does not need help standing or walking and has not fallen in the last 3 months. 6. The patient is not on any blood thinners or any antihypertensive medicines. 7. Opioid therapy is greater than 6 weeks. Therefore, no opioid signed contract is on the chart. 8. Risk assessment tool is low. His functional assessment is . 9. Recreational drug use, he denies. He is a former smoker and does occasionally drink alcohol about 4 drinks a week. We did check the prescription monitoring system. The patient is filling appropriately his medications from our doctors in the clinic. There is a recent drug screen in the chart that is appropriate. PHYSICAL EXAMINATION: [facility] [address] [place] [address] PAIN MANAGEMENT CONSULTATION Name: DANETTE GIBBS Room #: REG [facility] Barbara#: [id number] Admission: 04/27/18 Attend Phys: Kallie Yen Discharge: Date of : 64 Report #: [id number] GENERAL: This is a well-developed, well-nourished, well-hydrated 58-year-old that appears his stated age, placing his pain score today of 2/10. HEENT: Normocephalic, atraumatic. Pupils equal, round and reactive to light. EXTREMITIES: No clubbing, no cyanosis, no edema. MUSCULOSKELETAL: Lower extremity strength judged to be 5/5 in bilateral lower extremities. The patient is able to rise from sitting to standing without any difficulty. IMPRESSION: 1. Symptomatic lumbar radiculopathy. 2. Displacement of lumbar intervertebral disk with radiculopathy. 3. Lumbosacral spondylosis with radiculopathy. 4. Facet arthropathy of lower lumbar spine. 5. Chronic intractable pain. We reviewed the fact that opiate medications are being used to provide analgesia adequate to support activities of daily living, not attempting to achieve a specific pain score on the 0-10 Visual Analog Scale. The current opiate medications are providing sufficient analgesia to allow the patient to participate in activities of daily living. The patient is not exhibiting any aberrant behavior suggestive of drug diversion. The patient is not having any adverse reactions to medications. The patient is not suffering from daytime somnolence or mental acuity changes. The patient is managing opiate-induced constipation with appropriate ljgz-lbl-bnysqmt agents and dietary considerations. The patient was counseled on concern for caution with operating a motor vehicle while using opiate medications. A physical exam was performed and the patient's functional status was evaluated. All patients with back pain were advised against the bed rest greater than 4 days and were advised to return to normal activities. Pain score assessment was noted and the treatment plan was reviewed with the patient. All current medications, both prescribed and OTC were reviewed and reconciled on the electronic medical record. Tobacco screening was accomplished and smoking cessation was advised when indicated. BMI was noted and diet/exercise modification was recommended for all patients following outside normal parameters. I reviewed with the patient today their responsibilities to safeguard prescription medications, reviewed their responsibility to utilize medications only as prescribed by the physician. They are to seek and receive pain medications only from 1 physician group ([facility]). They are to use 1 pharmacy and keep the clinic informed if they change pharmacies. Their responsibilities include making followup visits in a timely fashion and to avoid abrupt discontinuation of medication usage. Their responsibilities further include bringing their medications (bottles from the pharmacy with residual pills) to the visit for possible confirmation of pill counts and the patient [address] [address] PAIN MANAGEMENT CONSULTATION Name: DANETTE GIBBS Room #: REG [facility] Rodrick.#: [id number] Admission: 04/27/18 Attend Phys: Kallie Yen Discharge: Date of : 64 Report #: [id number] understands it is their responsibility to submit to random drug screens to ensure both that the medications prescribed are present, and that no other controlled substances are present. All prescriptions provided today were generated electronically. PLAN: 1. We discussed treatment options with the patient today. He is needing refill of his MS Contin 15 mg 3 times a day. Scripts were given for #90 for today for 4-week and for 8-week release. 2. The patient will follow up in [address] Jaime Rouse or myself. He was informed that he needs to see Dr. Jaime Rouse at least 2 times a year, so to make the patient's appointments appropriately. Unless he needs an injection, he will see Dr. Jaime Rouse. The patient seen in collaboration today though under Dr. Tobias Marie. <ELECTRONICALLY SIGNED> By: aKllie Yen 04/28/18 1000 1044 [id number] Kallie Yen /nt
== END ==
LOC: PAIN 06:53
DX: M47.27 Other spondylosis with radiculopathy, lumbosacral region (principal); M51.16 Intervertebral disc disorders with radiculopathy, lumbar region; M12.88 Other specific arthropathies, not elsewhere classified, other specified site; G89.4 Chronic pain syndrome; Z79.899 Other long term (current) drug therapy

== ENCOUNTER → 2018-07-20 | Outpatient (CLI) | payer BC, OTHER ==
[~2018-07-20] VITALS: Ht 180.3 cm; Wt 95.3 kg
[~2018-07-20] MED LIST changes: +NEOMYC-POLYM-D3.5 GM TOP
--- NOTE | ~2018-07-20 | HPC ---
[facility] [address] [place] [address] PAIN MANAGEMENT CONSULTATION Name: DANETTE GIBBS Room #: REG [facility] M..#: [id number] Admission: 07/20/18 ������������������ Attend Phys: Jaime Rouse DO Discharge: ������������������ Date of : 64 Report #: [id number] THIS REPORT FOR: //name// CC: Benjie Lee Jr., MD DATE OF SERVICE: 07/20/2018 REFERRING PHYSICIAN: Dr. Andres Nicole. CHIEF COMPLAINT: Low back pain, left lower extremity pain and paresthesias. HISTORY OF PRESENT ILLNESS: As you know, the patient is a very pleasant 58-year-old male returning in followup visit for medication management. He feels medications are working beneficially for pain control. He is currently taking MS Contin 15 mg 3 times a day with good efficacy. He denies side effects of sleepiness, disorientation, confusion, mental slowing or constipation with this therapy. He returns requesting refill of the medications for the next 3 months. He does provide us a pain score of 1/10 today. The patient states he has been out being much more active, doing golfing outings as well as yard work without pain interference. He feels the medications are providing benefit to go about his activities of daily living. He returns requesting refill of medications for the next 3 months. ALLERGIES: No known drug allergies. CURRENT MEDICATIONS: MS Contin 15 mg twice a day, ketaconazole apply topically as needed, atorvastatin 10 mg per day, Cialis 20 mg p.r.n., ibuprofen 200 mg p.r.n. SOCIAL HISTORY: The patient denies tobacco, alcohol, IV or illicit drug use. He is working, not receiving workmen's compensation, unaccompanied today. IMAGING: No new imaging available. PHYSICAL EXAMINATION: VITAL SIGNS: Blood pressure 132/89, pulse of 92, respiratory rate 16 and unlabored. The patient is 98% on room air. Height 5 feet 11 inches tall, weight 210 pounds, BMI calculated 31.0. GENERAL: Well-developed, well-nourished, well-hydrated 58-year-old male, appearing stated age. His current pain score is 1/10. HEENT: Normocephalic, atraumatic. Pupils equal, round, reactive to light. Extraocular muscles are intact. Sclerae nonicteric without injection. NEUROLOGIC: Cranial nerves 2-12 grossly intact. Speech [place] [address] PAIN MANAGEMENT CONSULTATION Name: DANETTE GIBBS [id number] Admission: 07/20/18 ������������������ Attend Phys: Jaime Rouse DO Discharge: ������������������ Date of : 64 Report #: [id number] deemed an excellent historian. EXTREMITIES: Show no clubbing, no cyanosis, and no edema. MUSCULOSKELETAL: Lower extremity strength equal and symmetrical 5/5, intact to light touch from L1 through S2 dermatomes. Seated straight leg raising negative. Supine straight leg raising positive. Meghana's test negative. Modified Gaenslen's positive for axial low back pain. Ankle clonus negative. Babinski is negative. ASSESSMENT: 1. Symptomatic lumbar radiculopathy. 2. Displacement of lumbar intervertebral disk with radiculopathy. 3. Lumbosacral spondylosis with radiculopathy. 4. Facet arthropathy of the lumbar spine. 5. Chronic intractable pain. PLAN: 1. The patient returns today in followup visit to receive refill of medications. He feels medications are working beneficially for pain control. The patient states he is able to go about all activities of daily living including multiple golf outings and outdoor work, long preparation. He states these typically cause exacerbation of symptoms, but with medications, he is able to control the symptoms well. He returns requesting refill of his morphine at current dosing. He is denying side effects of sleepiness, disorientation, confusion with the use of the therapy. We reviewed the fact that opiate medications are being used to provide analgesia adequate to support activities of daily living, not attempting to achieve a specific pain score on the 0-10 Visual Analog Scale. The current opiate medications are providing sufficient analgesia to allow the patient to participate in activities of daily living. The patient is not exhibiting any aberrant behavior suggestive of drug diversion. The patient is not having any adverse reactions to medications. The patient is not suffering from daytime somnolence or mental acuity changes. The patient is managing opiate-induced constipation with appropriate adew-mii-tibagns agents and dietary considerations. The patient was counseled on concern for caution with operating a motor vehicle while using opiate medications. A physical exam was performed and the patient's functional status was evaluated. All patients with back pain were advised against the bed rest greater than 4 days and were advised to return to normal activities. Pain score assessment was noted and the treatment plan was reviewed with the patient. All current medications, both prescribed and OTC were reviewed and reconciled on the electronic medical record. Tobacco screening was accomplished and smoking cessation was advised when indicated. BMI was noted and diet/exercise modification was recommended for all patients following outside normal parameters. [address] [address] PAIN MANAGEMENT CONSULTATION Name: DANETTE GIBBS Room #: REG CLI Barbara#: [id number] Admission: 07/20/18 ������������������ Attend Phys: Jaime Rouse DO Discharge: ������������������ Date of : 64 Report #: [id number] I reviewed with the patient today their responsibilities to safeguard prescription medications, reviewed their responsibility to utilize medications only as prescribed by the physician. They are to seek and receive pain medications only from 1 physician group ( [facility]). They are to use 1 pharmacy and keep the clinic informed if they change pharmacies. Their responsibilities include making followup visits in a timely fashion and to avoid abrupt discontinuation of medication usage. Their responsibilities further include bringing their medications (bottles from the pharmacy with residual pills) to the visit for possible confirmation of pill counts and the patient understands it is their responsibility to submit to random drug screens to ensure both that the medications prescribed are present, and that no other controlled substances are present. All prescriptions provided today were generated electronically. 2. The patient was provided prescription of MS Contin 15 mg dose 1 tab p.o. t.i.d. I have given the patient #90 tablets, releasing today, 4 weeks from today, 8 weeks from today, 3 months' worth of medication. 3. We will see the patient back in followup visit in 3 months for medication therapy, earlier if he wishes to undergo any type of interventional treatment. ��������������������������������������������� ���������������������������������������� By: ��������������������������������������������� [id number] [id number] Jaime Rouse DO /nt
[2018-07-20 08:11] VITALS: BP 132/89
--- NOTE | 2018-07-20 08:21 | NUR ---
Pain Clinic Assessment: 1. History of Osteoarthritis: Not Applicable History of Rheumatoid Arthritis: Not Applicable 2. Height: 5 ft. 11 in. 180.3 cm. Weight: 210.0 lb. oz. 95.256 kg. Patient's BMI: 41.0 3. Vital Signs: BP: 132/89 Pulse: 92 Resp: 16 Temp: 02 Sat: 98 ECG Mon: 4. Pain Intensity: 1 5. Fall Risk: Dizziness: N Needs help standing or walking: N Fallen in the last 3 months: N Fall risk comments: 6. Patient on Blood Thinner: None 7. History of Hypertension: N 8. Opioid Therapy greater than 6 weeks: Y Opiate Contract Signed: 02/04/17 9. Risk Assessment Tool Provided: 3-LOW RISK 10. Functional Assessment Tool: 11. Recreational Drug Use: Never Drug Type: Tobacco Use: Former Smoker Tobacco Type: Amount or Packs/day: How Many Years: Alcohol Use: Yes Frequency: Quant:
== END ==
LOC: PAIN 06:54
DX: M51.16 Intervertebral disc disorders with radiculopathy, lumbar region (principal); M47.27 Other spondylosis with radiculopathy, lumbosacral region; G89.29 Other chronic pain; Z79.899 Other long term (current) drug therapy; Z79.891 Long term (current) use of opiate analgesic

== ENCOUNTER → 2018-10-12 | Outpatient (CLI) | payer BC, OTHER ==
[~2018-10-12] VITALS: Ht 180.3 cm; Wt 94.5 kg
[2018-10-12 08:23] VITALS: BP 128/77
--- NOTE | 2018-10-12 08:31 | NUR ---
Pain Clinic Assessment: 1. History of Osteoarthritis: Not Applicable History of Rheumatoid Arthritis: Not Applicable 2. Height: 5 ft. 11 in. 180.3 cm. Weight: 208.4 lb. oz. 94.530 kg. Patient's BMI: 29.1 3. Vital Signs: BP: 128/77 Pulse: 84 Resp: 16 Temp: 02 Sat: 98 ECG Mon: 4. Pain Intensity: 0 5. Fall Risk: Dizziness: N Needs help standing or walking: N Fallen in the last 3 months: N Fall risk comments: 6. Patient on Blood Thinner: None 7. History of Hypertension: N 8. Opioid Therapy greater than 6 weeks: Y Opiate Contract Signed: 02/04/17 9. Risk Assessment Tool Provided: 3-LOW RISK 10. Functional Assessment Tool: 11. Recreational Drug Use: Never Drug Type: Tobacco Use: Former Smoker Tobacco Type: Amount or Packs/day: How Many Years: Alcohol Use: Yes Frequency: Weekly Quant: 1-2
--- NOTE | 2018-10-18 14:01 | HPC ---
[facility] [place] [address] PAIN MANAGEMENT CONSULTATION Name: DANETTE GIBBS Room #: REG [facility] M.R.#: [id number] Admission: 10/12/18 ������������������ Attend Phys: Jaime Rouse DO Discharge: ������������������ Date of : 64 Report #: [id number] THIS REPORT FOR: //name// CC: Benjie Garcia Jr., MD DATE OF SERVICE: 10/12/2018 CHIEF COMPLAINT: Low back pain, left lower extremity pain with paresthesias. HISTORY OF PRESENT ILLNESS: As you know, the patient is a very pleasant 58-year-old male with long-standing history of low back pain, left lower extremity pain with paresthesias. He returns today in followup visit, reporting pain score 0/10. He states that the MS Contin 15 mg 3 times a day is working quite beneficially for pain control. He describes improvement in symptoms of up to 80%-90% with the MS Contin. He denies side effects of sleepiness, disorientation, confusion, mental slowness or constipation. He continues to work and leads an active lifestyle. He feels medications are beneficial and has returned, requesting refills for the next 3 months. He denies new injury or trauma that may have led to symptom continuation. ALLERGIES: No known drug allergies. CURRENT MEDICATIONS: MS Contin 15 mg t.i.d., ketoconazole apply topically as needed, atorvastatin 10 mg per day, Cialis 20 mg per day, ibuprofen 200 mg p.r.n. SOCIAL HISTORY: The patient denies tobacco, alcohol, IV or illicit drug use. He is working, not receiving workmen's compensation, unaccompanied today. IMAGING: No new imaging available. PHYSICAL EXAMINATION: VITAL SIGNS: Blood pressure 128/77, pulse 84, respiratory rate 16 and unlabored. The patient is 98% on room air. Height 5 feet 11 inches tall, weight 208 pounds, BMI calculated 29.1. GENERAL: Well-developed, well-nourished, well-hydrated, 58-year-old male. He appears his stated age, pain is rated today 0/10. HEENT: Normocephalic, atraumatic. Pupils equal, round, reactive to light. EXTREMITIES: Show no clubbing, no cyanosis, and no edema. MUSCULOSKELETAL: Lower extremity strength is symmetrical, 5/5. Muscle bulk and tone equal and symmetrical in comparing left lower extremity to right. Seated straight leg raising negative. Supine straight leg raising positive on the left. Intact to light touch from L1 through S2 dermatomes[place] [address] PAIN MANAGEMENT CONSULTATION Name: DANETTE GIBBS Room #: REG [facility].#: [id number] Admission: 10/12/18 ������������������ Attend Phys: Jaime Rouse DO Discharge: ������������������ Date of : 64 Report #: [id number] negative. Modified Gaenslen's positive for axial low back pain. Ankle clonus negative. Babinski is negative. ASSESSMENT: 1. Symptomatic lumbar radiculopathy. 2. Displacement of lumbar intervertebral disk with radiculopathy. 3. Lumbosacral spondylosis with radiculopathy. 4. Facet arthropathy of the lumbar spine. 5. Chronic intractable pain. PLAN: 1. The patient returns today in followup visit, indicating a pain score 0/10 today. He feels medications are working quite beneficially for pain control. We spent significant amount of time today, counseling the patient on the use of opioid medications. After this discussion, the patient states he feels medications are providing up to 80% improvement in overall pain. He is able to go about his activities of daily living without significant pain interference. He continues to lead an active lifestyle and this in combination with medications are providing the 0/10 pain noted today. He is extremely pleased with response to medication and wishes to continue the therapy. He is denying side effects with its use. We reviewed the fact that opiate medications are being used to provide analgesia adequate to support activities of daily living, not attempting to achieve a specific pain score on the 0-10 Visual Analog Scale. The current opiate medications are providing sufficient analgesia to allow the patient to participate in activities of daily living. The patient is not exhibiting any aberrant behavior suggestive of drug diversion. The patient is not having any adverse reactions to medications. The patient is not suffering from daytime somnolence or mental acuity changes. The patient is managing opiate-induced constipation with appropriate slrk-dbr-sezjolv agents and dietary considerations. The patient was counseled on concern for caution with operating a motor vehicle while using opiate medications. A physical exam was performed and the patient's functional status was evaluated. All patients with back pain were advised against the bed rest greater than 4 days and were advised to return to normal activities. Pain score assessment was noted and the treatment plan was reviewed with the patient. All current medications, both prescribed and OTC were reviewed and reconciled on the electronic medical record. Tobacco screening was accomplished and smoking cessation was advised when indicated. BMI was noted and diet/exercise modification was recommended for all patients following outside normal parameters. I reviewed with the patient today their responsibilities to safeguard prescription medications, reviewed their responsibility to utilize medications [address] [address] PAIN MANAGEMENT CONSULTATION Name: DANETTE GIBBS Room #: REG [facility] Jimenez#: [id number] Admission: 10/12/18 ������������������ Attend Phys: Jaime Rouse DO Discharge: ������������������ Date of : 64 Report #: [id number] only as prescribed by the physician. They are to seek and receive pain medications only from 1 physician group ( [facility]). They are to use 1 pharmacy and keep the clinic informed if they change pharmacies. Their responsibilities include making followup visits in a timely fashion and to avoid abrupt discontinuation of medication usage. Their responsibilities further include bringing their medications (bottles from the pharmacy with residual pills) to the visit for possible confirmation of pill counts and the patient understands it is their responsibility to submit to random drug screens to ensure both that the medications prescribed are present, and that no other controlled substances are present. All prescriptions provided today were generated electronically. 3. The patient was provided prescription of MS Contin 15 mg dose 1 tab p.o. t.i.d. I have given the patient #90 tablets, releasing today, 4 weeks from today, 8 weeks from today, 3 months' worth of medication. 4. We will see the patient back in followup visit in 3 months for medication management, earlier if interventional treatments need to be addressed. We are pleased to see the patient is doing well. We will see him back in 3 months for medications. We did do a review of the patient's PDMP today. It appears he is filling the medications appropriately at a single pharmacy, following our directions on how to fill medication prescriptions. He is complying with our opioid contract. ��������������������������������������������� <ELECTRONICALLY SIGNED> ���������������������������������������� By: Jaime Rouse DO ��������������������������������������������� 10/18/18 1401 [id number] Jaime Rouse DO /nt
== END ==
LOC: PAIN 08:10
DX: M51.16 Intervertebral disc disorders with radiculopathy, lumbar region (principal); M47.27 Other spondylosis with radiculopathy, lumbosacral region; M12.88 Other specific arthropathies, not elsewhere classified, other specified site; G89.29 Other chronic pain; M79.662 Pain in left lower leg

== ENCOUNTER → 2019-01-04 | Outpatient (CLI) | payer BC, OTHER ==
[~2019-01-04] VITALS: Ht 180.3 cm; Wt 95.6 kg
[2019-01-04 09:05] VITALS: BP 140/95
--- NOTE | 2019-01-04 09:16 | NUR ---
Pain Clinic Assessment: 1. History of Osteoarthritis: Not Applicable History of Rheumatoid Arthritis: Not Applicable 2. Height: 5 ft. 11 in. 180.3 cm. Weight: 210.8 lb. oz. 95.618 kg. Patient's BMI: 29.4 3. Vital Signs: BP: 140/95 Pulse: 82 Resp: 16 Temp: 02 Sat: 100 ECG Mon: 4. Pain Intensity: 1 5. Fall Risk: Dizziness: N Needs help standing or walking: N Fallen in the last 3 months: N Fall risk comments: 6. Patient on Blood Thinner: None 7. History of Hypertension: N 8. Opioid Therapy greater than 6 weeks: Y Opiate Contract Signed: 02/04/17 9. Risk Assessment Tool Provided: 3-LOW RISK 10. Functional Assessment Tool: 11. Recreational Drug Use: Never Drug Type: Tobacco Use: Former Smoker Tobacco Type: Amount or Packs/day: How Many Years: Alcohol Use: Yes Frequency: Quant:
--- NOTE | 2019-01-17 07:57 | HPC ---
[facility] [address] [place] [address] PAIN MANAGEMENT CONSULTATION Name: DANETTE GIBBS [id number] Admission: 01/04/19 Attend Phys: Jaime Rouse DO Discharge: Date of : 64 Report #: [id number] THIS REPORT FOR: //name// CC: Benjie Pollack DATE OF SERVICE: 01/04/2019 REFERRING PHYSICIAN: Benjie Nguyen DO CHIEF COMPLAINT: Low back pain, left lower extremity pain with paresthesias. HISTORY OF PRESENT ILLNESS: As you know, the patient is a very pleasant 58-year-old male who returns today in followup visit with longstanding history of low back pain, left lower extremity pain with paresthesias to receive refill of medications. We have stabilized the patient on a dose of MS ER 15 mg dose 3 times a day and the patient notes good efficacy. This is a total of 45 morphine equivalents a day, well below the CDCs recommended, no greater than 90 morphine equivalents. He is denying side effects of medication such as sleepiness, disorientation, confusion, mental slowing. He feels medications work beneficially. He is able to go about his very active lifestyle and work schedule without difficulty with these medications. He returns today requesting refill of medications. He is placing pain score as 1/10. ALLERGIES: No known drug allergies. CURRENT MEDICATIONS: MS Contin 15 mg t.i.d., ketoconazole to apply topically as needed, atorvastatin 10 mg per day, Cialis 20 mg p.r.n. and ibuprofen 200 mg p.r.n. SOCIAL HISTORY: The patient denies tobacco, alcohol, IV or illicit drug use. He is working, not receiving workmen's compensation, unaccompanied today. IMAGING: No new imaging available. PHYSICAL EXAMINATION: VITAL SIGNS: Blood pressure 140/95, pulse 82, respiratory rate 16 and unlabored. The patient is 100% on room air. Height 5 feet 11 inches tall, weight 210.8 pounds, BMI calculated 29.4. GENERAL: Well-developed, well-nourished, well-hydrated 58-year-old male appearing stated age, pain is rated today 1/10. HEENT: Normocephalic, atraumatic. Pupils equal, round, reactive to light. EXTREMITIES: Show no clubbing, no cyanosis, and no edema. MUSCULOSKELETAL: Lower extremity strength is symmetrical, 5/5. Seated straight leg raising negative. Supine straight leg raising positive on the left at about [facility] [address] [place] [address] PAIN MANAGEMENT CONSULTATION Name: DANETTE GIBBS Room #: REG [facility]#: [id number] Admission: 01/04/19 Attend Phys: Jaime Rouse DO Discharge: Date of : 64 Report #: [id number] 60 degrees. Intact to light touch from L1 through S2 dermatomes. ONI'S test is negative. Modified Gaenslen's positive for some axial low back pain. Gait appears mildly antalgic favoring left lower extremity over right. ASSESSMENT: 1. Symptomatic lumbar radiculopathy. 2. Displacement of lumbar intervertebral disk with radiculopathy. 3. Lumbosacral spondylosis with radiculopathy. 4. Facet arthropathy of the lumbar spine. 5. Chronic intractable pain. PLAN: 1. The patient has returned today in followup visit requesting refill on medications. He feels medications are working beneficially for pain control. He reports no side effects to medication, including somnolence, decreased mental acuity, disorientation and confusion. He feels medications are working well, providing pain level of only 1/10. He returns requesting refill on medications at this visit. We reviewed the fact that opiate medications are being used to provide analgesia adequate to support activities of daily living, not attempting to achieve a specific pain score on the 0-10 Visual Analog Scale. The current opiate medications are providing sufficient analgesia to allow the patient to participate in activities of daily living. The patient is not exhibiting any aberrant behavior suggestive of drug diversion. The patient is not having any adverse reactions to medications. The patient is not suffering from daytime somnolence or mental acuity changes. The patient is managing opiate-induced constipation with appropriate ruyd-ois-vbwoijb agents and dietary considerations. The patient was counseled on concern for caution with operating a motor vehicle while using opiate medications. A physical exam was performed and the patient's functional status was evaluated. All patients with back pain were advised against the bed rest greater than 4 days and were advised to return to normal activities. Pain score assessment was noted and the treatment plan was reviewed with the patient. All current medications, both prescribed and OTC were reviewed and reconciled on the electronic medical record. Tobacco screening was accomplished and smoking cessation was advised when indicated. BMI was noted and diet/exercise modification was recommended for all patients following outside normal parameters. I reviewed with the patient today their responsibilities to safeguard prescription medications, reviewed their responsibility to utilize medications only as prescribed by the physician. They are to seek and receive pain medications only from 1 physician group ([facility]). They are to use 1 pharmacy and keep the clinic informed if they change pharmacies. Their responsibilities include making followup visits in a timely fashion and to avoid [address] [address] PAIN MANAGEMENT CONSULTATION Name: DANETTE GIBBS Room #: REG [facility] Jimenez#: [id number] Admission: 01/04/19 Attend Phys: Jaime Rouse DO Discharge: Date of : 64 Report #: [id number] abrupt discontinuation of medication usage. Their responsibilities further include bringing their medications (bottles from the pharmacy with residual pills) to the visit for possible confirmation of pill counts and the patient understands it is their responsibility to submit to random drug screens to ensure both that the medications prescribed are present, and that no other controlled substances are present. All prescriptions provided today were generated electronically. 2. The patient was provided prescription of MS Contin 15 mg dose 1 tab p.o. t.i.d. I have given the patient #90 tablets releasing today, 4 weeks from today and 8 weeks from today, 3 months' worth of medication. 3. We will see the patient back in followup visit in 3 months for medication management, earlier if he wishes to address potential changes in medication management or interventional treatments. <ELECTRONICALLY SIGNED> By: Jaime Rouse DO 01/17/19 0757 [id number] Jaime Rouse DO /nt
== END ==
LOC: PAIN 06:58
DX: M47.27 Other spondylosis with radiculopathy, lumbosacral region (principal); M51.16 Intervertebral disc disorders with radiculopathy, lumbar region; M12.88 Other specific arthropathies, not elsewhere classified, other specified site; G89.4 Chronic pain syndrome

== ENCOUNTER → 2019-03-30 | Outpatient (CLI) | payer BC, OTHER ==
[~2019-03-30] VITALS: Ht 180.3 cm; Wt 96.6 kg
[2019-03-30 13:26] VITALS: BP 136/85
--- NOTE | 2019-03-31 07:24 | HPC ---
[facility] [address] [place] [address] PAIN MANAGEMENT CONSULTATION Name: DANETTE GIBBS Room #: REG [facility] Barbara#: [id number] Admission: 03/30/19 Attend Phys: Kallie Yen Discharge: Date of : 64 Report #: [id number] THIS REPORT FOR: //name// CC: Kallie Rouse DO Physician staff JONATHAN SON DATE OF SERVICE: 03/30/2019 CHIEF COMPLAINT: Low back pain, left lower extremity pain and paresthesias. HISTORY OF PRESENT ILLNESS: This is a very pleasant 59-year-old gentleman who returns to the pain clinic today for refill of his medications that he uses to help treat his ongoing low back pain, left lower extremity pain and paresthesias. He has been stable on this MS Contin 15 mg 3 times a day for quite some time with no side effects, daytime sleepiness or daytime drowsiness. He would like refills of this medication today. He feels that it is mostly located in his lower back and left leg. It is worse at bedtime as well as sitting and lying down, but as long as he is active and using his medication, he finds it very beneficial. The patient reports that he has had a difficult last few months. He broke a tooth. He did require some hydrocodone from his dentist for the few days that was painful. He underwent a root canal and is waiting on a graft to finish healing before finishing that process. He also has undergone a Mohs procedure on his left nasal cavity. He has required Plastic Surgery to have this closed and is still undergoing treatment. ALLERGIES: No known drug allergies. CURRENT LIST OF MEDICATIONS: MS Contin 15 mg t.i.d., atorvastatin, Cialis and ibuprofen. PQRS: 1. Denies any osteoarthritis or rheumatoid arthritis. 2. Height is 5 feet 11 inches, weight is 210 and BMI is 29. 3. Vital signs 136/85, pulse is 100, respirations 14, oxygen sat is 95. 4. Pain score is 10. 5. Fall risk, denies dizziness, does not need help walking or standing, has not fallen in the last 3 months. The patient is not on any blood thinners or medicines for hypertension. 6. Opioid therapy is greater than 6 weeks; therefore, an opiate signed contract is on the chart. Risk assessment is low. Functional assessment is . 7. Recreational drug use, denies recreational drug use. He is a former smoker [address] [address] PAIN MANAGEMENT CONSULTATION Name: DANETTE GIBBS Room #: REG [facility] Barbara#: [id number] Admission: 03/30/19 Attend Phys: Kallie Yen Discharge: Date of : 64 Report #: [id number] and occasionally drinks alcohol. According to the prescription monitoring system, the patient is filling appropriately and is due for his medications today. According to the CDC guidelines, his morphine mEq is 45 MMEs. PHYSICAL EXAMINATION: GENERAL: This is a well-developed, well-nourished, well-hydrated 59-year-old gentleman who appears his stated age, placing his current pain score 1/10 today. HEENT: Normocephalic, atraumatic. Pupils equal, round and reactive to light. He has a well-healed approximated scar on his left naris that from a recent Mohs procedure. EXTREMITIES: No clubbing, no cyanosis, no edema. MUSCULOSKELETAL: Lower extremity strength is symmetrical at 5/5. Straight leg raising is positive on the left. He has intact to light touch from L1 through S2 dermatomal distribution. Gait appears mildly antalgic, favoring his left lower extremity over his right. ASSESSMENT: 1. Symptomatic lumbar radiculopathy. 2. Displacement of lumbar intravertebral disk with radiculopathy. 3. Lumbosacral spondylosis with radiculopathy. 4. Facet arthroscopy of the lumbar spine. 5. Chronic intractable pain. 6. Recent Mohs procedure, left nasal area, requiring plastic surgery. We reviewed the fact that opiate medications are being used to provide analgesia adequate to support activities of daily living, not attempting to achieve a specific pain score on the 0-10 Visual Analog Scale. The current opiate medications are providing sufficient analgesia to allow the patient to participate in activities of daily living. The patient is not exhibiting any aberrant behavior suggestive of drug diversion. The patient is not having any adverse reactions to medications. The patient is not suffering from daytime somnolence or mental acuity changes. The patient is managing opiate-induced constipation with appropriate gvtm-tgm-zoxmyzc agents and dietary considerations. The patient was counseled on concern for caution with operating a motor vehicle while using opiate medications. PLAN: 1. We discussed treatment options with the patient today. The patient is doing well on his current medicine regime which he has been stable on this for quite some time. We will electronically send his morphine sulfate 15 mg, #90 for today, 4-week and 8-week release. This will be done by Dr. Travon Pineda who is covering for Dr. Jaime Rouse today. 2. The patient is instructed to call for an appointment when he fills his last [facility] [address] [place] [address] PAIN MANAGEMENT CONSULTATION Name: DANETTE GIBBS Room #: [facility]#: [id number] Admission: 03/30/19 Attend Phys: Kallie Yen Discharge: Date of : 64 Report #: [id number] prescription. The patient verbalizes understanding. Again, the patient is seen in collaboration with Dr. Travon Pineda. <ELECTRONICALLY SIGNED> By: Kallie Yen 03/31/19 0724 [id number] Kallie Yen /nt
== END ==
LOC: PAIN 06:57
DX: M51.16 Intervertebral disc disorders with radiculopathy, lumbar region (principal); M47.27 Other spondylosis with radiculopathy, lumbosacral region; M12.88 Other specific arthropathies, not elsewhere classified, other specified site; G89.4 Chronic pain syndrome

== ENCOUNTER → 2019-06-21 | Outpatient (CLI) | payer BC, OTHER ==
[~2019-06-21] VITALS: Ht 180.3 cm; Wt 96.2 kg
[2019-06-21 10:35] VITALS: BP 121/85
--- NOTE | 2019-06-21 10:46 | NUR ---
Pain Clinic Assessment: 1. History of Osteoarthritis: NONE History of Rheumatoid Arthritis: NONE 2. Height: 5 ft. 11 in. 180.3 cm. Weight: 212.0 lb. oz. 96.163 kg. Patient's BMI: 29.6 3. Vital Signs: BP: 121/85 Pulse: 90 Resp: 16 Temp: 02 Sat: 100 ECG Mon: 4. Pain Intensity: 1-2 5. Fall Risk: Dizziness: N Needs help standing or walking: N Fallen in the last 3 months: N Fall risk comments: 6. Patient on Blood Thinner: None 7. History of Hypertension: N 8. Opioid Therapy greater than 6 weeks: Y Opiate Contract Signed: 02/04/17 9. Risk Assessment Tool Provided: 3-LOW RISK 10. Functional Assessment Tool: 11. Recreational Drug Use: Never Drug Type: Tobacco Use: Former Smoker Tobacco Type: Amount or Packs/day: How Many Years: Alcohol Use: Yes Frequency: Weekly Quant:
--- NOTE | 2019-06-22 10:41 | HPC ---
[facility] [address] [place] [address] PAIN MANAGEMENT CONSULTATION Name: DANETTE GIBBS Room #: REG [facility]..#: [id number] Admission: 06/21/19 Attend Phys: Kallie Yen Discharge: Date of : 64 Report #: [id number] THIS REPORT FOR: cc: RADHA SON Physician not on staff Kallie Yen ~ DATE OF SERVICE: 06/21/2019 CHIEF COMPLAINT: Low back pain, lower extremity pain and paresthesias. HISTORY OF PRESENT ILLNESS: This is a very pleasant 59-year-old gentleman who returns to the Pain Clinic today for a refill of his medication that he uses to help treat his lumbar radiculopathy. He reports his pain score is 1-2 currently. He feels like it is doing very well, controlled currently with his pain medicines. Pain radiates from his lower back down his left hip into his leg with numbness and aching feeling. It is worse after he has worked during the day or prolonged sitting. He feels that walking and his medication and relaxing is very beneficial. He denies any problems with constipation or daytime sleepiness as a result of his medications. ALLERGIES: No known drug allergies. CURRENT LIST OF MEDICATIONS: MS Contin 15 mg t.i.d., atorvastatin, Cialis and ibuprofen. PQRS: 1. He denies history of osteoarthritis or rheumatoid arthritis. 2. Height is 5 feet 11 inches, weight is 212, BMI is 29. 3. Vital signs 121/85, pulse is 90, respirations 16, oxygen sat is 100. 4. Pain score is 1-2. 5. Denies dizziness, does not need help walking or standing, has not fallen in the last 3 months. 6. The patient is not on any blood thinners or medicine for hypertension. 7. Opioid therapy is greater than 6 weeks; therefore, an opioid signed contract is on the chart. Risk assessment tool is low. Functional assessment is . 8. Recreational drug use, he denies. He is a former smoker and does not drink alcohol. According to the prescription monitoring system, the patient is filling appropriately for his medications in a timely fashion. He is due to fill those medicines today. According to the CDC guidelines, his morphine mEq is 45 MME. We will check a random drug screen on him on the next visit in 3 months. PHYSICAL EXAMINATION: GENERAL: This is alert and orientated, very pleasant 59-[place] [address] PAIN MANAGEMENT CONSULTATION Name: DANETTE GIBBS Room #: REG CLI [facility]#: [id number] Admission: 06/21/19 Attend Phys: Kallie Yen Discharge: Date of : 64 Report #: [id number] appears his stated age, placing his current pain score at 1-2. HEENT: Normocephalic, atraumatic. Extraocular eye muscles are intact. Mucous membranes are moist. EXTREMITIES: No clubbing, no cyanosis, no edema. MUSCULOSKELETAL: His lower extremity strength judged to be 5/5 in all major muscle groups. He is intact to light touch from L1-S2. He walks with a slightly antalgic gait favoring his left lower extremity over his right. His pain is in his lumbar spine that radiates down his left leg. His seated straight leg raising is negative. ASSESSMENT: 1. Symptomatic lumbar radiculopathy. 2. Displacement of lumbar intervertebral disk with radiculopathy. 3. Lumbosacral spondylosis with radiculopathy. 4. Facet arthroscopy of the lumbar spine. 5. Chronic intractable pain. 6. Opioid management of medications under written agreement. We reviewed the fact that opiate medications are being used to provide analgesia adequate to support activities of daily living, not attempting to achieve a specific pain score on the 0-10 Visual Analog Scale. The current opiate medications are providing sufficient analgesia to allow the patient to participate in activities of daily living. The patient is not exhibiting any aberrant behavior suggestive of drug diversion. The patient is not having any adverse reactions to medications. The patient is not suffering from daytime somnolence or mental acuity changes. The patient is managing opiate-induced constipation with appropriate snuo-ydl-uqtcjuz agents and dietary considerations. The patient was counseled on concern for caution with operating a motor vehicle while using opiate medications. PLAN: 1. We discussed treatment options with the patient today. The patient finds his medication very beneficial in controlling his pain. We will continue his MS Contin 15 mg, #90, for 3 months. These will be sent electronically by Dr. Jaime Rouse. 2. We discussed the COVID-19 virus and the possible effects on the supply of medications in the future. I encouraged the patient if he is able to take less medications on some days, so he does have a supply at home that he may find that beneficial in case supply is disrupted. The patient reports he had not thought of that, but he will try to decrease when he is having a less painful day. 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 The patient is thankful for that. [address] [address] PAIN MANAGEMENT CONSULTATION Name: DANETTE GIBBS Room #: JERICA Jimenez#: [id number] Admission: 06/21/19 Attend Phys: Kallie Yen Discharge: Date of : 64 Report #: [id number] 3. The patient will return in 3 months. The patient is seen today in collaboration with Dr. Jaime Rouse. <ELECTRONICALLY SIGNED> By: Kallie Yen 06/22/19 [id number] [id number] Kallie Yne /nt
== END ==
LOC: PAIN 06:49
DX: M51.16 Intervertebral disc disorders with radiculopathy, lumbar region (principal); R20.2 Paresthesia of skin; M12.88 Other specific arthropathies, not elsewhere classified, other specified site; G89.29 Other chronic pain; F11.20 Opioid dependence, uncomplicated; Z79.84 Long term (current) use of oral hypoglycemic drugs; Z79.899 Other long term (current) drug therapy

== ENCOUNTER → 2019-09-13 | Outpatient (CLI) | payer BC, OTHER ==
[~2019-09-13] VITALS: Ht 180.3 cm; Wt 92.8 kg
[2019-09-13 13:17] VITALS: BP 137/80
--- NOTE | 2019-09-13 13:22 | NUR ---
Pain Clinic Assessment: 1. History of Osteoarthritis: NONE History of Rheumatoid Arthritis: NONE 2. Height: 5 ft. 11 in. 180.3 cm. Weight: 204.6 lb. oz. 92.806 kg. Patient's BMI: 28.5 3. Vital Signs: BP: 137/80 Pulse: 93 Resp: 16 Temp: 02 Sat: 99 ECG Mon: 4. Pain Intensity: 1 5. Fall Risk: Dizziness: N Needs help standing or walking: N Fallen in the last 3 months: N Fall risk comments: 6. Patient on Blood Thinner: None 7. History of Hypertension: N 8. Opioid Therapy greater than 6 weeks: Y Opiate Contract Signed: 02/04/17 9. Risk Assessment Tool Provided: 3-LOW RISK 10. Functional Assessment Tool: 11. Recreational Drug Use: Never Drug Type: Tobacco Use: Former Smoker Tobacco Type: Cigars Amount or Packs/day: 1 WEEK How Many Years: Alcohol Use: Yes Frequency: Special Occasions Quant: 1-2
--- NOTE | 2019-09-14 08:45 | HPC ---
[facility] [address] [address] [address] PAIN MANAGEMENT CONSULTATION Name: DANETTE GIBBS Room #: REG [facility] M..#: [id number] Admission: 09/13/19 Attend Phys: Kallie Yen Discharge: Date of : 64 Report #: [id number] THIS REPORT FOR: cc: RADHA SON not on staff Kallie Yen ~ CC: DARIEL KARIMI DO DATE OF SERVICE: 09/13/2019 CHIEF COMPLAINT: Low back pain, lower extremity pain and paresthesias. HISTORY OF PRESENT ILLNESS: This is a very pleasant 59-year-old gentleman who returns to the pain clinic today for refill of his medications. He is reporting that his pain is doing quite well on his current regimen, rating a pain of 1/10 today. It is located in his lower back, left hip and leg. States that he has occasional numbness and aching, but is worse at night after a day of work and sitting. He feels that if he relaxes, uses his medication, repositions and moves around that has been beneficial. He denies problems with daytime somnolence or constipation as a result of his medications. ALLERGIES: No known drug allergies. CURRENT LIST OF MEDICATIONS: Morphine sulfate 15 mg b.i.d., atorvastatin, Cialis and ibuprofen p.r.n. PQRS: 1. He denies osteoarthritis or rheumatoid arthritis. 2. Height is 5 feet 11 inches, weight is 204. BMI is 28. 3. Vital signs 137/80, pulse is 93, respirations 16, oxygen sat is 99. 4. Pain score is 1/10. 5. Denies dizziness, does not need help walking or standing, has not fallen in the last 3 months. 6. The patient is not on any blood thinners and does not take any hypertensive medicines. 7. Opioid therapy is greater than 6 weeks; therefore, an opioid signed contract is on the chart. Risk assessment tool is low. Functional assessment is . 8. Recreational drug use, he denies. He is a former smoker and occasionally drinks alcohol. According to the prescription monitoring system, he is filling appropriately from his pharmacy, filling in a timely fashion and his morphine mEq per day according to the CDC guidelines is 45. We will check a random drug screen on this patient today as it had been greater than one year. PHYSICAL EXAMINATION: [facility] [address] [place] [address] PAIN MANAGEMENT CONSULTATION Name: DANETTE GIBBS Room #: REG [facility]per[facility] Jimenez#: [id number] Admission: 09/13/19 Attend Phys: Kallie Yen Discharge: Date of : 64 Report #: [id number] GENERAL: This is a well-developed, well-nourished, well-hydrated 59-year-old gentleman who is alert and orientated, placing his current pain score 1/10 today. HEENT: Normocephalic, atraumatic. Extraocular eye muscles are intact. He is wearing a mask. EXTREMITIES: No clubbing, no cyanosis, no edema. MUSCULOSKELETAL: He has tenderness in his lumbosacral region that does radiate into his legs. He has a slightly antalgic gait favoring his left over his right. Seated straight leg raising is negative. He has intact to light touch from L1-S2. ASSESSMENT: 1. Symptomatic lumbar radiculopathy. 2. Displacement of lumbar intervertebral disk with radiculopathy. 3. Lumbosacral spondylosis with radiculopathy. 4. Facet arthroscopy of the lumbar spine. 5. Chronic intractable pain. 6. Opioid management under terms of written agreement. We reviewed the fact that opiate medications are being used to provide analgesia adequate to support activities of daily living, not attempting to achieve a specific pain score on the 0-10 Visual Analog Scale. The current opiate medications are providing sufficient analgesia to allow the patient to participate in activities of daily living. The patient is not exhibiting any aberrant behavior suggestive of drug diversion. The patient is not having any adverse reactions to medications. The patient is not suffering from daytime somnolence or mental acuity changes. The patient is managing opiate-induced constipation with appropriate fkwv-tkr-pqbeqzw agents and dietary considerations. The patient was counseled on concern for caution with operating a motor vehicle while using opiate medications. A physical exam was performed and the patient's functional status was evaluated. All patients with back pain were advised against the bed rest greater than 4 days and were advised to return to normal activities. Pain score assessment was noted and the treatment plan was reviewed with the patient. All current medications, both prescribed and OTC were reviewed and reconciled on the electronic medical record. Tobacco screening was accomplished and smoking cessation was advised when indicated. BMI was noted and diet/exercise modification was recommended for all patients following outside normal parameters. I reviewed with the patient today their responsibilities to safeguard prescription medications, reviewed their responsibility to utilize medications only as prescribed by the physician. They are to seek and receive pain medications only from 1 physician group ([facility]). They are to use 1 pharmacy and keep the clinic informed if they change pharmacies. Their [address] [address] PAIN MANAGEMENT CONSULTATION Name: DANETTE GIBBS Room #: REG SAMMIE Jimenez#: [id number] Admission: 09/13/19 Attend Phys: Kallie Yen Discharge: Date of : 64 Report #: [id number] responsibilities include making followup visits in a timely fashion and to avoid abrupt discontinuation of medication usage. Their responsibilities further include bringing their medications (bottles from the pharmacy with residual pills) to the visit for possible confirmation of pill counts and the patient understands it is their responsibility to submit to random drug screens to ensure both that the medications prescribed are present, and that no other controlled substances are present. All prescriptions provided today were generated electronically. PLAN: 1. We discussed treatment options with the patient today. I explained to the patient that we need to collect a random drug screen it had been greater than a year. The patient is not taking his medicines today, but he had taken it last night, so it should be within the limits of a positive screen. 2. We will refill his opioid medications of morphine sulfate 15 mg, #90, for today 4, 8-week release. These will be sent electronically by Dr. Dariel Karimi. 3. The patient does continue to work at [employer]. 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 I encouraged him to keep his medicines with him while he does travel. 4. The patient will be seen again in 3 months. The patient encouraged to call for an appointment. He is seen in collaboration with Dr. Dariel Karimi. <ELECTRONICALLY SIGNED> By: Kallie Yen 09/14/19 0845 [id number] Kallie Yen /cleopatra
== END ==
LOC: PAIN 06:54
PROVIDERS: ATTEND Clinical Nurse Specialist Adult Health
DX: M47.27 Other spondylosis with radiculopathy, lumbosacral region (principal); M51.16 Intervertebral disc disorders with radiculopathy, lumbar region; R20.2 Paresthesia of skin; M79.604 Pain in right leg; M79.605 Pain in left leg; G89.29 Other chronic pain; F11.20 Opioid dependence, uncomplicated; Z79.899 Other long term (current) drug therapy

== ENCOUNTER → 2019-12-06 | Outpatient (CLI) | payer BC, OTHER ==
[~2019-12-06] VITALS: Ht 180.3 cm; Wt 94.3 kg
[2019-12-06 09:27] VITALS: BP 137/88
--- NOTE | 2019-12-06 09:47 | NUR ---
Pain Clinic Assessment: 1. History of Osteoarthritis: NONE History of Rheumatoid Arthritis: NONE 2. Height: 5 ft. 11 in. 180.3 cm. Weight: 207.8 lb. oz. 94.258 kg. Patient's BMI: 29.0 3. Vital Signs: BP: 137/88 Pulse: 83 Resp: 16 Temp: 02 Sat: 100 ECG Mon: 4. Pain Intensity: 0-1 5. Fall Risk: Dizziness: N Needs help standing or walking: N Fallen in the last 3 months: N Fall risk comments: 6. Patient on Blood Thinner: None 7. History of Hypertension: N 8. Opioid Therapy greater than 6 weeks: Y Opiate Contract Signed: 02/04/17 9. Risk Assessment Tool Provided: 3-LOW RISK 10. Functional Assessment Tool: 11. Recreational Drug Use: Never Drug Type: Tobacco Use: Former Smoker Tobacco Type: Amount or Packs/day: How Many Years: Alcohol Use: Yes Frequency: Quant:
--- NOTE | 2019-12-06 15:10 | HPC ---
[facility] [address] [place] [address] PAIN MANAGEMENT CONSULTATION Name: DANETTE GIBBS Room #: REG [facility]..#: [id number] Admission: 12/06/19 Attend Phys: Kallie Yen Discharge: Date of : 64 Report #: [id number] THIS REPORT FOR: cc: RADHA SON Physician not on staff Kallie Yen ~ DATE OF SERVICE: 12/06/2019 CHIEF COMPLAINT: Low back pain, left lower extremity pain and paresthesias. HISTORY OF PRESENT ILLNESS: This is a pleasant 59-year-old gentleman who returns to the pain clinic today for refill of his medications. Today, he is rating his pain as 0-1. This is most problematic when he is sitting and lying down or weather changes and at night when he is sleeping. He feels that being active and repositioning keeps his pain decreased. Most of his pain is located again in his lower back but does radiate down his left hip into his leg. Today, he denies any daytime somnolence or constipation as a result of his medication. ALLERGIES: No known drug allergies. CURRENT LIST OF MEDICATIONS: Morphine sulfate 15 mg ,atorvastatin, Cialis and ibuprofen. PQRS: 1. He denies a history of osteo or rheumatoid arthritis. 2. Height is 5 feet 11 inches, weight is 207 and BMI is 29. Vital signs 137/88, pulse is 83, respirations 16, oxygen sat is 100, pain score 0-1. Fall risk: Denies dizziness, does not need help walking or standing, has not fallen in the last 3 months. The patient is not on any blood thinners or medicines for hypertension. Opioid therapy is greater than 6 weeks; therefore, an opioid signed contract is on the chart. Risk assessment is low. Functional assessment is . 3. Recreational drug use, he denies. He is a former smoker and does drink alcohol. According to the prescription monitoring system, the patient is filling appropriately in a timely fashion. His morphine milliequivalent is 45 MME. We did check a random drug screen at his last visit that is appropriate for his medications as well. PHYSICAL EXAMINATION: GENERAL: This is a well-developed, well-nourished, well-hydrated 59-year-old gentleman who appears his stated age, placing his current pain score 0-1. HEENT: Normocephalic, atraumatic. Extraocular eye [place] [address] PAIN MANAGEMENT CONSULTATION Name: DANETTE GIBBS [facility] [id number] Admission: 12/06/19 Attend Phys: Kallie Yen Discharge: Date of : 64 Report #: [id number] wearing glasses. EXTREMITIES: No clubbing, no cyanosis, no edema. MUSCULOSKELETAL: He has a slightly antalgic gait favoring his left over his right. Seated straight leg raising is negative. He has tenderness over his lumbosacral region that radiates into his left leg to his foot. Lower extremity strength is symmetrical at 5/5 with good sensation from L1 to S2. ASSESSMENT: 1. Symptomatic lumbar radiculopathy. 2. Displacement of the lumbar intervertebral disk with radiculopathy. 3. Lumbosacral spondylosis with radiculopathy. 4. Chronic intractable pain. 5. Opioid medication management under terms of written agreement. We reviewed the fact that opiate medications are being used to provide analgesia adequate to support activities of daily living, not attempting to achieve a specific pain score on the 0-10 Visual Analog Scale. The current opiate medications are providing sufficient analgesia to allow the patient to participate in activities of daily living. The patient is not exhibiting any aberrant behavior suggestive of drug diversion. The patient is not having any adverse reactions to medications. The patient is not suffering from daytime somnolence or mental acuity changes. The patient is managing opiate-induced constipation with appropriate pxdq-etw-uzyhaif agents and dietary considerations. The patient was counseled on concern for caution with operating a motor vehicle while using opiate medications. PLAN: 1. We discussed treatment options with the patient today. He finds his medications very beneficial and would like refills. We will have Dr. Jaime Rouse send electronically morphine sulfate 15 mg, #90, for today 4 week, an 8-week supply. 2. We did discuss the COVID outbreak. He does wear a mask at all times. 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 3. We did discuss him getting a flu shot here in the near future. I encouraged him to have that done in December since the flu season typically lasts until April or May. The patient verbalizes understanding. 4. The patient will return in 3 months. The patient is seen today in collaboration with Dr. Jaime Roues. <ELECTRONICALLY SIGNED> By: Kallie Yen 12/06/19 1510 [id number] Kallie Yen /nt
== END ==
LOC: PAIN 06:50
PROVIDERS: ATTEND Clinical Nurse Specialist Adult Health
DX: M47.27 Other spondylosis with radiculopathy, lumbosacral region (principal); M51.16 Intervertebral disc disorders with radiculopathy, lumbar region; M79.605 Pain in left leg; R20.2 Paresthesia of skin; G89.29 Other chronic pain; F11.20 Opioid dependence, uncomplicated; Z79.899 Other long term (current) drug therapy

== ENCOUNTER → 2020-02-27 | Outpatient (CLI) | payer BC, OTHER ==
[~2020-02-27] VITALS: Ht 180.3 cm; Wt 95.4 kg
[2020-02-27 08:28] VITALS: BP 119/76
--- NOTE | 2020-02-27 08:46 | NUR ---
Pain Clinic Assessment: 1. History of Osteoarthritis: NONE History of Rheumatoid Arthritis: NONE 2. Height: 5 ft. 11 in. 180.3 cm. Weight: 210.4 lb. oz. 95.437 kg. Patient's BMI: 29.4 3. Vital Signs: BP: 119/76 Pulse: 92 Resp: 16 Temp: 02 Sat: 100 ECG Mon: 4. Pain Intensity: 1 5. Fall Risk: Dizziness: N Needs help standing or walking: N Fallen in the last 3 months: N Fall risk comments: 6. Patient on Blood Thinner: None 7. History of Hypertension: N 8. Opioid Therapy greater than 6 weeks: Y Opiate Contract Signed: 02/04/17 9. Risk Assessment Tool Provided: 0 10. Functional Assessment Tool: 11. Recreational Drug Use: Never Drug Type: Tobacco Use: Former Smoker Tobacco Type: Amount or Packs/day: How Many Years: Alcohol Use: Yes Frequency: Weekly Quant:
--- NOTE | 2020-02-28 08:57 | HPC ---
[facility] [address] [address] PAIN MANAGEMENT CONSULTATION Name: DANETTE GIBBS Room #: REG [facility]..#: [id number] Admission: 02/27/20 Attend Phys: Kallie Yen Discharge: Date of : 64 Report #: [id number] THIS REPORT FOR: cc: RADHA SON Physician not on staff Kallie Yen ~ CC: Kallie GALINDO DATE OF SERVICE: 02/27/2020 CHIEF COMPLAINT: Low back pain, left lower extremity pain and paresthesias. HISTORY OF PRESENT ILLNESS: This is a very pleasant 60-year-old gentleman who returns to the pain clinic today for a refill of his medications. Today, he is reporting he is doing quite well, rating his pain at a 1/10. His pain is located in his lower back that does radiate down his left leg and hip. It is usually worse at night and with prolonged sitting. He reports he has been quite active recently, able to go hunting and walked about 15 miles total and that did not flare his pain. He does not complain of any constipation or daytime somnolence. Overall, he reports doing quite well with his current regimen. ALLERGIES: No known drug allergies. CURRENT LIST OF MEDICATIONS: Morphine 15 mg t.i.d., atorvastatin, Cialis and Advil. PQRS: 1. He denies osteoarthritis or rheumatoid arthritis. 2. Height is 5 feet 11 inches, weight is 210. BMI is 29. 3. Vital signs 119/76, pulse is 92, respirations 16, oxygen sat is 100. 4. Pain score is 1. 5. Denies dizziness. Does not need help walking or standing. Has not fallen in the last 3 months. 6. The patient is not on any blood thinners or medicine for hypertension. 7. Opioid therapy is greater than 6 weeks; therefore, an opioid signed contract is on the chart. Risk assessment is low. Functional assessment is . 8. Recreational drug use, he denies. He is a former smoker and occasionally drinks alcohol. According to the prescription monitoring system, he is filling appropriately. His morphine milliequivalent is 45 MME. There is a drug screen on the chart that is appropriate as well for his medications. PHYSICAL EXAMINATION: [address] [address] PAIN MANAGEMENT CONSULTATION Name: DANETTE GIBBS Room #: REG SAMMIE Jimenez#: [id number] Admission: 02/27/20 Attend Phys: Kallie Yen Discharge: Date of : 64 Report #: [id number] GENERAL: This is a well-developed, well-nourished, well-hydrated 60-year-old gentleman who appears his stated age, placing his current pain score at 1/10. HEENT: Normocephalic, atraumatic. Extraocular eye muscles are intact. He is wearing a mask. EXTREMITIES: No clubbing, no cyanosis, no edema. MUSCULOSKELETAL: Lower extremity strength is symmetrical at 5/5 and intact to light touch from the L1-S2. Deep tendon reflexes are symmetrical. Seated straight leg raising is negative. His gait is mildly antalgic, favoring the left lower extremity over the right. Tenderness over his lumbosacral region that radiates into his left leg. IMPRESSION: 1. Symptomatic lumbar radiculopathy. 2. 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 3. Lumbosacral spondylosis with radiculopathy. 4. Chronic intractable pain. 5. Opioid medication management under terms of written agreement. We reviewed the fact that opiate medications are being used to provide analgesia adequate to support activities of daily living, not attempting to achieve a specific pain score on the 0-10 Visual Analog Scale. The current opiate medications are providing sufficient analgesia to allow the patient to participate in activities of daily living. The patient is not exhibiting any aberrant behavior suggestive of drug diversion. The patient is not having any adverse reactions to medications. The patient is not suffering from daytime somnolence or mental acuity changes. The patient is managing opiate-induced constipation with appropriate [id number]-[id number] agents and dietary considerations. The patient was counseled on concern for caution with operating a motor vehicle while using opiate medications. A physical exam was performed and the patient's functional status was evaluated. All patients with back pain were advised against the bed rest greater than 4 days and were advised to return to normal activities. Pain score assessment was noted and the treatment plan was reviewed with the patient. All current medications, both prescribed and OTC were reviewed and reconciled on the electronic medical record. Tobacco screening was accomplished and smoking cessation was advised when indicated. BMI was noted and diet/exercise modification was recommended for all patients following outside normal parameters. I reviewed with the patient today their responsibilities to safeguard prescription medications, reviewed their responsibility to utilize medications only as prescribed by the physician. They are to seek and receive pain medications only from 1 physician group ([facility]). They are to use 1 pharmacy and keep the clinic informed if they change pharmacies. Their responsibilities include making followup visits in a timely fashion and to avoid [address] [address] PAIN MANAGEMENT CONSULTATION Name: DANETTE GIBBS Room #: JERICA Jimenez#: [id number] Admission: 02/27/20 Attend Phys: Kallie Yen Discharge: Date of : 64 Report #: [id number] abrupt discontinuation of medication usage. Their responsibilities further include bringing their medications (bottles from the pharmacy with residual pills) to the visit for possible confirmation of pill counts and the patient understands it is their responsibility to submit to random drug screens to ensure both that the medications prescribed are present, and that no other controlled substances are present. All prescriptions provided today were generated electronically. PLAN: 1. We discussed treatment options with the patient today. Overall, he is doing quite well with his current regimen and would like to continue. We will have Dr. Jaime Rouse send his morphine sulfate 15 mg, #90 electronically for today, 4-week and 8-week release. 2. We did talk about COVID outbreak. He is interested in having the vaccine when it becomes available. He reports being tested several times at work and following strict guidelines and wears a mask at all times. 3. The patient is seen today in collaboration with Dr. Jaime Rouse. <ELECTRONICALLY SIGNED> By: Kallie Yen 02/28/20 0857 [id number] 09 Kallie Yen /cleopatra
== END ==
LOC: PAIN 06:44
PROVIDERS: ATTEND Clinical Nurse Specialist Adult Health
DX: M54.5 Low back pain (principal); M79.605 Pain in left leg; R20.2 Paresthesia of skin

== ENCOUNTER → 2020-05-21 | Outpatient (CLI) | payer BC, OTHER ==
[~2020-05-21] VITALS: Ht 180.3 cm; Wt 96.0 kg
[2020-05-21 08:10] VITALS: BP 124/84
--- NOTE | 2020-05-21 08:27 | NUR ---
Pain Clinic Assessment: 1. History of Osteoarthritis: NONE History of Rheumatoid Arthritis: NONE 2. Height: 5 ft. 11 in. 180.3 cm. Weight: 211.6 lb. oz. 95.981 kg. Patient's BMI: 29.5 3. Vital Signs: BP: 124/84 Pulse: 85 Resp: 16 Temp: 02 Sat: 100 ECG Mon: 4. Pain Intensity: 0-1 5. Fall Risk: Dizziness: N Needs help standing or walking: N Fallen in the last 3 months: N Fall risk comments: 6. Patient on Blood Thinner: None 7. History of Hypertension: N 8. Opioid Therapy greater than 6 weeks: Y Opiate Contract Signed: 02/04/17 9. Risk Assessment Tool Provided: 0 10. Functional Assessment Tool: 11. Recreational Drug Use: Never Drug Type: Tobacco Use: Former Smoker Tobacco Type: Amount or Packs/day: How Many Years: Alcohol Use: Yes Frequency: Quant:
--- NOTE | 2020-05-21 11:24 | HPC ---
[facility] [address] [address] PAIN MANAGEMENT CONSULTATION Name: DANETTE GIBBS [facility] [id number] Admission: 05/21/20 Attend Phys: Kallie Yen Discharge: Date of : 64 Report #: [id number] THIS REPORT FOR: cc: RADHA SON not on staff Kallie Yen DATE OF SERVICE: 05/21/2020 CC: Dr Jaime Rouse DO CHIEF COMPLAINT: Low back pain, left lower extremity pain and paresthesias. HISTORY OF PRESENT ILLNESS: This is a very pleasant 60-year-old gentleman who returns to the pain clinic today for renewal of his morphine sulfate. He takes for his ongoing low back pain that does radiate into his left hip and left leg. He does report a pain score of 0-1 today. He feels the medications are very beneficial in controlling his pain and describes it as a dull aching sensation. He reports that his pain is worse at night after has worked all day and lying down. Overall, medications as well as walking and relaxation are beneficial for him. He denies any constipation issues or daytime somnolence as a result of his morphine use. The patient does report he recently had his COVID vaccine. He has had both injections of the Pfizer vaccine. He also reports he recently had a cardiac workup done due to a heart murmur that was detected. Per his report it was decided it was an innocent murmur. ALLERGIES: No known drug allergies. CURRENT LIST OF MEDICATIONS: Morphine 15 mg t.i.d., atorvastatin, Cialis and Advil. PQRS: 1. He denies history of osteoarthritis or rheumatoid arthritis. 2. Height is 5 feet 11 inches, weight is 211, BMI is 29. 3. Vital signs 124/84, pulse is 85, respirations 16, oxygen sat is 100. 4. Pain score 0-1. 5. Denies dizziness, does not need help walking or standing, has not fallen in the last 3 months. 6. The patient is not on any blood thinners, does take a medicine for hypertension. 7. Opioid therapy is greater than 6 weeks; therefore, an opioid signed contract is on the chart. Risk assessment is 0. Functional assessment is . 8. Recreational drug use, he denies. He is not a smoker and occasionally drinks alcohol. According to the prescription monitoring system, he is due to fill his medications today. He does fill them in a timely fashion. There is a recent [facility] [address] [place] [address] PAIN MANAGEMENT CONSULTATION Name: DANETTE GIBBS Room #: REG [facility] Jimenez#: [id number] Admission: 05/21/20 Attend Phys: Kallie Yen Discharge: Date of : 64 Report #: [id number] drug screen on the chart that is appropriate and his morphine milliequivalent according to the CDC guidelines is 45. PHYSICAL EXAMINATION: GENERAL: This is alert and orientated 60-year-old gentleman who appears his stated age, answering all my questions appropriately with no signs of overmedication, rating his pain score at 0-1 today. HEENT: Normocephalic, atraumatic. Extraocular eye muscles are intact. He is wearing a mask. EXTREMITIES: No clubbing, no cyanosis, no edema. MUSCULOSKELETAL: Lower extremity strength is symmetrical at 5/5, intact to light touch from L1-S2. Seated straight leg raising is negative. Supine straight leg raising is positive on the left. Gait is mildly antalgic, favoring the left lower extremity over the right. ASSESSMENT: 1. Symptomatic lumbar radiculopathy. 2. Displacement of lumbar intervertebral disk with radiculopathy. 3. Lumbosacral spondylosis with radiculopathy. 4. Neural foraminal stenosis of the lumbar spine. 5. Facet arthroscopy of the lumbar spine. 6. Chronic intractable pain. Utilizing scheduled opioid medications. We reviewed the fact that opiate medications are being used to provide analgesia adequate to support activities of daily living, not attempting to achieve a specific pain score on the 0-10 Visual Analog Scale. The current opiate medications are providing sufficient analgesia to allow the patient to participate in activities of daily living. The patient is not exhibiting any aberrant behavior suggestive of drug diversion. The patient is not having any adverse reactions to medications. The patient is not suffering from daytime somnolence or mental acuity changes. The patient is managing opiate-induced constipation with appropriate ytur-kfx-ouomsph agents and dietary considerations. The patient was counseled on concern for caution with operating a motor vehicle while using opiate medications. PLAN: 1. We discussed treatment options with the patient today. He believes his morphine sulfate 15 mg is very effective in controlling his pain, allowing him to work on a daily basis. We will have Dr. Jaime Rouse send #90 for release today, release in 4 weeks and release in 8 weeks to his pharmacy electronically. 2. The patient has had the COVID vaccination and is thankful that he was able to have that. He does continue to wear a mask at all times. [address] [address] PAIN MANAGEMENT CONSULTATION Name: DANETTE GIBBS Room #: JERICA SAMMIE Jimenez#: [id number] Admission: 05/21/20 Attend Phys: Kallie Yen Discharge: Date of : 64 Report #: [id number] The patient is seen today in collaboration with Dr. Jaime Rouse. <ELECTRONICALLY SIGNED> By: Kallie Yen 05/21/20 1124 [id number] Kallie Yen /nt
== END ==
LOC: PAIN 06:49
PROVIDERS: ATTEND Clinical Nurse Specialist Adult Health
DX: M51.16 Intervertebral disc disorders with radiculopathy, lumbar region (principal); M47.27 Other spondylosis with radiculopathy, lumbosacral region; M48.061 Spinal stenosis, lumbar region without neurogenic claudication; G89.29 Other chronic pain; F11.20 Opioid dependence, uncomplicated; Z88.8 Allergy status to other drugs, medicaments and biological substances; Z79.899 Other long term (current) drug therapy

== ENCOUNTER → 2020-08-13 | Outpatient (CLI) | payer BC, OTHER ==
[~2020-08-13] VITALS: Ht 180.3 cm; Wt 95.7 kg
[2020-08-13 08:03] VITALS: BP 141/80
--- NOTE | 2020-08-13 08:06 | NUR ---
Pain Clinic Assessment: 1. History of Osteoarthritis: NONE History of Rheumatoid Arthritis: NONE 2. Height: 5 ft. 11 in. 180.3 cm. Weight: 211.0 lb. oz. 95.709 kg. Patient's BMI: 29.4 3. Vital Signs: BP: 141/80 Pulse: 88 Resp: 14 Temp: 02 Sat: 99 ECG Mon: 4. Pain Intensity: 1 5. Fall Risk: Dizziness: N Needs help standing or walking: N Fallen in the last 3 months: N Fall risk comments: 6. Patient on Blood Thinner: None 7. History of Hypertension: N 8. Opioid Therapy greater than 6 weeks: Y Opiate Contract Signed: 02/04/17 9. Risk Assessment Tool Provided: 0 10. Functional Assessment Tool: 11. Recreational Drug Use: Never Drug Type: Tobacco Use: Former Smoker Tobacco Type: Amount or Packs/day: How Many Years: Alcohol Use: Yes Frequency: Quant:
--- NOTE | 2020-08-14 14:27 | HPC ---
[facility] [address] [address] [place] [address] PAIN MANAGEMENT CONSULTATION Name: DANETTE GIBBS [facility] #: [facility] [id number] Admission: 08/13/20 Attend Phys: Kallie Yen Discharge: Date of : 64 Report #: [id number] THIS REPORT FOR: cc: RADHA SON Physician not on staff Kallie Yen ~ DOC #: [id number] cc: Jaime Rouse DO DATE OF SERVICE: 08/13/2020 DATE OF SERVICE: 08/13/2020 CHIEF COMPLAINT: Low back pain, left lower extremity pain and paresthesias. HISTORY OF PRESENT ILLNESS: As you know, this is a 60-year-old gentleman who returns today for renewal of his medications that he uses to help treat his ongoing lumbar radiculopathy and low back pain. Today, he is reporting a pain score of 1/10, stating his low back, left hip that radiates to his left knee is his problematic area. He describes it as a dull aching sensation and believes his morphine sulfate 15 mg is very beneficial and helping reduce his pain. He reports that at the end of the day after he has been walking and very busy, his pain has increased. His medication and relaxation is beneficial. He denies any opioid-induced constipation or daytime somnolence as a result of his medications. The patient does report having a full cardiac workup since we've seen him. He reports that all of his echo, stress test and EKG were appropriate and no changes were made in his medication. He feels good that his murmur was found to be an innocent murmur and is glad to have an extensive workup done. ALLERGIES: No known drug allergies. CURRENT LIST OF MEDICATIONS: Morphine sulfate 15 mg q. 8 hours, Lipitor, Cialis, ibuprofen p.r.n., aspirin 81 mg. PQRS: He denies osteoarthritis or rheumatoid arthritis. PHYSICAL EXAMINATION: GENERAL: Height is 5 feet 11 inches, weight is 211, BMI is 29. VITAL SIGNS: 141/80, pulse is 88, respirations 14, oxygen sat is 99%. Pain score is 1 out of 10. Denies dizziness. Does not need help walking or standing. Has not fallen in the last 3 months. The patient is not on any blood thinners or medicine for hypertension. Opiate therapy is greater than six weeks; therefore, an opioid signed contract is on the chart. Risk [place] 0. [place] [address] PAIN MANAGEMENT CONSULTATION Name: DANETTE GIBBS Room #: REG CL Barbara#: [id number] Admission: 08/13/20 Attend Phys: Kallie Yen Discharge: Date of : 64 Report #: [id number] FUNCTIONAL ASSESSMENT: 9 out a 70. RECREATIONAL DRUG USE: He denies. He is a former smoker and occasionally drinks alcohol. According to the prescription monitoring system, the patient is filling appropriately in a timely fashion. His morphine mEq is 45 MME. There is a urine drug screen on the chart that we will recheck later in the year. PHYSICAL EXAMINATION: GENERAL: This is alert and orientated well-developed, well-nourished, well-hydrated 60-year-old gentleman who appears his stated age, rating his pain score 1/10. He is a good historian. HEENT: Normocephalic, atraumatic. Extraocular eye muscles are intact. He is wearing a mask. EXTREMITIES: No clubbing, no cyanosis, no edema. MUSCULOSKELETAL: Lower extremity strength is symmetrical at 5/5 with good sensation from L1-S2. Straight leg raising is positive on the right. He has mildly antalgic gait. Tenderness in the lumbosacral region of his spine. Modified ganglion is positive for some axial low back pain. ASSESSMENT: 1. Symptomatic lumbar radiculopathy. 2. Displacement of lumbar intervertebral disk with radiculopathy. 3. Lumbar sacral spondylosis. 4. Neuroforaminal stenosis of lumbar spine. 5. Facet arthroscopy of the lumbar spine. 6. Complex medication management utilizing scheduled opioid medications. PLAN: 1. We discussed treatment options with the patient today. The patient finds his medications very beneficial with no side effects or cognitive impairment. We will continue him on his MS Contin 15 mg, #90. These will be sent electronically by Dr. Jaime Rouse for 3 months. 2. The patient will follow up with Dr. Jaime Rouse at his next visit. Time spent with the patient in consultation, reviewing recent studies and clinical notes and physician reports, physical examination and correlation of findings and medical documentation to determine possible treatment options 12 minutes. Total time spent in preparation for appointment reviewing prescription monitoring system, reviewing previous records and treatment options and reviewing current medications 5 minutes. Time spent preparing and sending electronic prescriptions with collaborating physician, Dr. Jaime Rouse and documentation of visit and plan of treatment 5 minutes. Total time spent 22 minutes. [facility] [address] [place] [address] PAIN MANAGEMENT CONSULTATION Name: DANETTE GIBBS Room #: REG SAMMIE Barbara#: [id number] Admission: 08/13/20 Attend Phys: Kallie Yen Discharge: Date of : 64 Report #: [id number] YAHIR Sandoval <ELECTRONICALLY SIGNED> By: Kallie Yen 08/14/20 1427 0913 [id number] Kallie Yen /nt
== END ==
LOC: PAIN 07:24
PROVIDERS: ATTEND Clinical Nurse Specialist Adult Health
DX: M51.16 Intervertebral disc disorders with radiculopathy, lumbar region (principal); M47.26 Other spondylosis with radiculopathy, lumbar region; M48.061 Spinal stenosis, lumbar region without neurogenic claudication; Z79.891 Long term (current) use of opiate analgesic; Z79.899 Other long term (current) drug therapy

== ENCOUNTER → 2020-11-05 | Outpatient (CLI) | payer BC, OTHER ==
[~2020-11-05] VITALS: Ht 180.3 cm; Wt 96.3 kg
[2020-11-05 07:59] VITALS: BP 132/84
--- NOTE | 2020-11-05 08:13 | NUR ---
Pain Clinic Assessment: 1. History of Osteoarthritis: NONE History of Rheumatoid Arthritis: NONE 2. Height: 5 ft. 11 in. 180.3 cm. Weight: 212.4 lb. oz. 96.344 kg. Patient's BMI: 29.6 3. Vital Signs: BP: 132/84 Pulse: 82 Resp: 16 Temp: 02 Sat: 100 ECG Mon: 4. Pain Intensity: 1 5. Fall Risk: Dizziness: N Needs help standing or walking: N Fallen in the last 3 months: N Fall risk comments: 6. Patient on Blood Thinner: None 7. History of Hypertension: N 8. Opioid Therapy greater than 6 weeks: Y Opiate Contract Signed: 11/05/20 9. Risk Assessment Tool Provided: 0 10. Functional Assessment Tool: 11. Recreational Drug Use: Never Drug Type: Tobacco Use: Current Some Day Smoker Tobacco Type: Cigars Amount or Packs/day: How Many Years: Alcohol Use: Yes Frequency: Special Occasions Quant: 1 DRINK BEER/WINE
--- NOTE | 2020-11-05 12:24 | HPC ---
[facility] [address] [address] [address] PAIN MANAGEMENT CONSULTATION Name: DANETTE GIBBS Room #: REG [facility].#: [id number] Admission: 11/05/20 Attend Phys: Jaime Rouse DO Discharge: Date of : 64 Report #: [id number] THIS REPORT FOR: cc: RADHA SON Physician not on staff Jaime Rouse DO ~ cc: Radha Nicole Jr., MD DATE OF SERVICE: 11/05/2020 REFERRING PHYSICIAN: Dr. Radha Nicole. CHIEF COMPLAINT: Low back pain, left lower extremity pain with paresthesias. HISTORY OF PRESENT ILLNESS: As you know, the patient is a very pleasant 60-year-old male returning today in followup visit requesting refill on medications. He states that the medications are providing excellent benefit for pain control. The patient is able to participate in all activities of daily living with minimal pain interference. He has just recently completed a full cardiac workup and has been shown to be quite healthy. Apparently, primary care had heard a possible murmur. 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 He has no concerns. He has returned to work and full level of activity, states that the medications do allow him to participate daily, both at home and at work. He is very pleased with response to medication, denying side effects of sleepiness, disorientation, confusion, mental slowing. He will continue to take the medication as required. He returns today for refill of medications to continue analgesic benefit. ALLERGIES: No known drug allergies. CURRENT MEDICATIONS: MS Contin 15 mg t.i.d., atorvastatin 10 mg per day, Cialis 20 mg p.r.n., ibuprofen 200 mg p.r.n. SOCIAL HISTORY: The patient denies tobacco, alcohol or IV or illicit drug use. He is working, not receiving workmen's compensation, unaccompanied today. IMAGING: No new imaging available. PHYSICAL EXAMINATION: VITAL SIGNS: Blood pressure 132/84, pulse is 82, respiratory rate 16 and unlabored. The patient is 100% on room air. Height 5 feet 11 inches tall, weight 212.4 pounds, BMI calculated 29.6. GENERAL: Well-developed, well-nourished, well-hydrated 60-year-old male appearing stated age. Pain is rated around 1/10. HEENT: Normocephalic, atraumatic. Pupils equal, round and responsive. He is wearing a mask in compliance with COVID-19 regulations. EXTREMITIES: Show no clubbing, no cyanosis[place] [address] PAIN MANAGEMENT CONSULTATION Name: DANETTE GIBBS Room #: REG [facility].#: [id number] Admission: 11/05/20 Attend Phys: Jaime Roues DO Discharge: Date of : 64 Report #: [id number] MUSCULOSKELETAL: Lower extremity strength remains symmetrical 5/5. Muscle bulk and tone is symmetrical comparing lower extremities. Seated straight leg raising is negative. Supine straight leg raising is positive on the left. Meghana's test is negative. Gait appears normal. Stance is slightly forward flexed with minimal loss of lordotic curvature. ASSESSMENT: 1. Symptomatic lumbar radiculopathy. 2. Displacement of lumbar intervertebral disk with radiculopathy. 3. Neural foraminal stenosis of lumbar spine. 4. Facet arthropathy of lumbar spine. 5. Lumbosacral spondylosis with radiculopathy. 6. Compliance with medication management utilizing scheduled medications. 7. Chronic intractable pain. PLAN: 1. The patient returns today in followup visit requesting refill on medications. He feels medications are working beneficially for pain control. He is denying side effects of sleepiness, disorientation, confusion, mental slowing with the medication use. We reviewed the patient's PDMP today. There is no concerning entries on the [place] and [place] reports. 2. We reviewed the fact that opiate medications are being used to provide analgesia adequate to support activities of daily living, not attempting to achieve a specific pain score on the 0-10 Visual Analog Scale. The current opiate medications are providing sufficient analgesia to allow the patient to participate in activities of daily living. The patient is not exhibiting any aberrant behavior suggestive of drug diversion. The patient is not having any adverse reactions to medications. The patient is not suffering from daytime somnolence or mental acuity changes. The patient is managing opiate-induced constipation with appropriate gpre-cjb-oqapsbm agents and dietary considerations. The patient was counseled on concern for caution with operating a motor vehicle while using opiate medications. A physical exam was performed and the patient's functional status was evaluated. All patients with back pain were advised against the bed rest greater than 4 days and were advised to return to normal activities. Pain score assessment was noted and the treatment plan was reviewed with the patient. All current medications, both prescribed and OTC were reviewed and reconciled on the electronic medical record. Tobacco screening was accomplished and smoking cessation was advised when indicated. BMI was noted and diet/exercise modification was recommended for all patients following outside normal parameters. I reviewed with the patient today their responsibilities to safeguard prescription medications, reviewed their responsibility to utilize medications only as prescribed by the physician. They are to seek and receive pain [facility] [address] [place] [address] PAIN MANAGEMENT CONSULTATION Name: DANETTE GIBBS Room #: REG [facility]#: [id number] Admission: 11/05/20 Attend Phys: Jaime Rouse DO Discharge: Date of : 64 Report #: [id number] medications only from 1 physician group ( [facility]). They are to use 1 pharmacy and keep the clinic informed if they change pharmacies. Their responsibilities include making followup visits in a timely fashion and to avoid abrupt discontinuation of medication usage. Their responsibilities further include bringing their medications (bottles from the pharmacy with residual pills) to the visit for possible confirmation of pill counts and the patient understands it is their responsibility to submit to random drug screens to ensure both that the medications prescribed are present, and that no other controlled substances are present. All prescriptions provided today were generated electronically. 3. The patient was provided prescription of MS Contin 15 mg dose 1 tab p.o. t.i.d. I have given the patient #90 tablets. They are going to release today, 4 weeks from today and 8 weeks from today, 3 months' worth of medication. The patient was advised to utilize the medication as directed. He is not to take the medication prophylactically. He is to take medication no more than three times a day. 4. We plan to see the patient back in followup visit in 3 months for medication management. We were pleased to see he is doing well with the medication and is able to continue to participate in daily activities. We will see him back in 3 months. <ELECTRONICALLY SIGNED> By: Jaime Rouse DO 11/05/20 1224 0922 [id number] Jaime Rouse DO /cleopatra
== END ==
LOC: PAIN 06:42
PROVIDERS: ATTEND Anesthesiology Pain Medicine
DX: G89.29 Other chronic pain (principal); M51.16 Intervertebral disc disorders with radiculopathy, lumbar region; M48.061 Spinal stenosis, lumbar region without neurogenic claudication; M47.27 Other spondylosis with radiculopathy, lumbosacral region; Z68.29 Body mass index [BMI] 29.0-29.9, adult; Z79.891 Long term (current) use of opiate analgesic; Z79.899 Other long term (current) drug therapy

== ENCOUNTER → 2021-01-28 | Outpatient (CLI) | payer BC, OTHER ==
[~2021-01-28] VITALS: Ht 180.3 cm; Wt 97.0 kg
[2021-01-28 09:05] VITALS: BP 131/79
--- NOTE | 2021-01-29 08:37 | HPC ---
[facility] [address] [place] [address] PAIN MANAGEMENT CONSULTATION Name: DANETTE GIBBS Room #: REG [facility].#: [id number] Admission: 01/28/21 Attend Phys: Kallie Yen Discharge: Date of : 64 Report #: [id number] THIS REPORT FOR: cc: RADHA SON Physician not on staff Kallie Yen ~ cc: Jaime Rouse DO, Samuel Hooper DATE OF SERVICE: 01/28/2021 CHIEF COMPLAINT: Low back pain, left lower extremity pain, and paresthesias. HISTORY OF PRESENT ILLNESS: This is a very pleasant 61-year-old gentleman who returns to the Pain Clinic today for renewal of his medications. Today, he is reporting pain that is in his low back radiating to his left hip and leg. He describes it as a dull aching sensation. He believes that the morphine three times a day is beneficial in alleviating significant portion rating 1/10 pain score with his medications. He reports that his pain is worse at night after he has been lying down or prolonged sitting. He is very active with his job and that has been beneficial in alleviating significant portion of his pain. He denies constipation or daytime somnolence as a result of his opioid medications. He is thankful for the medications and would like a renewal of this analgesic medication today. ALLERGIES: No known drug allergies. CURRENT LIST OF MEDICATIONS: Morphine sulfate 15 mg q.8 h. Atorvastatin, Cialis and ibuprofen. PATIENT'S PQRS: 1. He denies any osteoarthritis or rheumatoid arthritis. He is 5 feet 11 inches, weight is 212, and BMI is 29. 2. Vital signs 132/84, pulse is 82, respirations 16, oxygen sat is 100. 3. Pain score is 1. 4. Denies dizziness, does not need help walking or has not fallen in the last 3 months. 5. The patient is not on any blood thinners, and does take medicine for hypertension. 6. Opioid therapy is greater than 6 weeks; therefore, an opioid signed contract is on the chart. 7. Risk assessment is low. Functional assessment is . 8. Recreational drug use, he denies. He is a current smoker of cigars occasionally and does drinks some alcoholic beverages occasionally. According to the prescription monitoring system, the patient is filling appropriately in a timely fashion. He is due to fill his medications this week. His morphine mEq is 45. There is an opioid random drug screen on the chart [address] [address] PAIN MANAGEMENT CONSULTATION Name: DANETTE GIBBS Room #: REG [facility]#: [id number] Admission: 01/28/21 Attend Phys: Kallie Yen Discharge: Date of : 64 Report #: [id number] that is appropriate as well. PHYSICAL EXAM: GENERAL: This is alert and orientated well-developed, well-nourished 61-year-old gentleman, who appears his stated age, rating his pain score today at 1/10. HEENT: Normocephalic, atraumatic. Extraocular eye muscles are intact. He is wearing a mask for COVID precautions. EXTREMITIES: No clubbing, no cyanosis, no edema. MUSCULOSKELETAL: He has tenderness in the lumbosacral region that does radiate into his left leg greater than the right. Negative straight leg raising. Upper and lower extremity strength is symmetrical. He has forward flexion stance with Minimal loss of lordotic curve. IMPRESSION: 1. Symptomatic lumbar radiculopathy. 2. Displacement of lumbar intervertebral disk with radiculopathy. 3. Neural foraminal stenosis of lumbar spine. 4. Facet arthropathy of the lumbar spine. 5. Lumbosacral spondylosis with radiculopathy. 6. Medication management utilizing scheduled opioid medications. We reviewed the fact that opiate medications are being used to provide analgesia adequate to support activities of daily living, not attempting to achieve a specific pain score on the 0-10 Visual Analog Scale. The current opiate medications are providing sufficient analgesia to allow the patient to participate in activities of daily living. The patient is not exhibiting any aberrant behavior suggestive of drug diversion. The patient is not having any adverse reactions to medications. The patient is not suffering from daytime somnolence or mental acuity changes. The patient is managing opiate-induced constipation with appropriate ckwr-hfu-ymumebq agents and dietary considerations. The patient was counseled on concern for caution with operating a motor vehicle while using opiate medications. PLAN: 1. We discussed treatment options with the patient today. The patient feels that he has sufficient analgesia with his current regimen of MS Contin 15 mg to allow him to participate in his work and activities of daily living with very minimal side effects. We will continue his morphine sulfate [address] Jaime Rouse will send #90 for today, 4 week and 8-week release to his local pharmacy. 2. The patient discussed the COVID vaccine. He is scheduled for his booster today. He has been obtaining the [employer] vaccine, and we encouraged him to premedicate as to alleviate any side effects from that vaccine. The patient will return in 3 months. At that time, we will collect a random [facility] [address] [place] [address] PAIN MANAGEMENT CONSULTATION Name: DANETTE GIBBS Room #: REG [facility]#: [id number] Admission: 01/28/21 Attend Phys: Kallie Yen Discharge: Date of : 64 Report #: [id number] drug screen on the patient. Time spent with the patient in consultation, reviewing recent studies and clinical notes and physician reports, physical examination and correlation of findings, medical documentation to determine possible treatment options 13 minutes. Time spent preparing for appointment, reviewing prescription, monitoring system, reviewing previous records and proposed treatment options, reviewing current medications 5 minutes. Time spent preparing and sending electronic prescriptions with collaborating physician, Dr. Jaime Rouse, and documentation of visit and plan of treatment total time 5 minutes. Total time spent 23 minutes. <ELECTRONICALLY SIGNED> By: Kallie Yen 01/29/21 0837 1003 1140 Kallie Yen /nt
== END ==
LOC: PAIN 06:56
PROVIDERS: ATTEND Clinical Nurse Specialist Adult Health
DX: M51.16 Intervertebral disc disorders with radiculopathy, lumbar region (principal); M48.061 Spinal stenosis, lumbar region without neurogenic claudication; M47.27 Other spondylosis with radiculopathy, lumbosacral region; Z79.899 Other long term (current) drug therapy

== ENCOUNTER → 2021-04-23 | Outpatient (CLI) | payer BC, OTHER ==
[~2021-04-23] VITALS: Ht 180.3 cm; Wt 98.2 kg
[2021-04-23 08:37] VITALS: BP 134/94
--- NOTE | 2021-04-23 08:45 | NUR ---
Pain Clinic Assessment: 1. History of Osteoarthritis: NONE History of Rheumatoid Arthritis: NONE 2. Height: 5 ft. 11 in. 180.3 cm. Weight: 216.6 lb. oz. 98.249 kg. Patient's BMI: 30.2 3. Vital Signs: BP: 134/94 Pulse: 89 Resp: 16 Temp: 02 Sat: 100 ECG Mon: 4. Pain Intensity: 1-2 5. Fall Risk: Dizziness: N Needs help standing or walking: N Fallen in the last 3 months: N Fall risk comments: 6. Patient on Blood Thinner: None 7. History of Hypertension: N 8. Opioid Therapy greater than 6 weeks: Y Opiate Contract Signed: 11/05/20 9. Risk Assessment Tool Provided: LOW-0 10. Functional Assessment Tool: 11. Recreational Drug Use: Never Drug Type: Tobacco Use: Current Some Day Smoker Tobacco Type: Amount or Packs/day: How Many Years: Alcohol Use: Yes Frequency: Quant:
== END ==
LOC: PAIN 07:33
PROVIDERS: ATTEND Clinical Nurse Specialist Adult Health
DX: M47.26 Other spondylosis with radiculopathy, lumbar region (principal); M48.061 Spinal stenosis, lumbar region without neurogenic claudication; M79.662 Pain in left lower leg; F17.200 Nicotine dependence, unspecified, uncomplicated; Z79.899 Other long term (current) drug therapy